=== PATIENT | male | born 1950 | race Caucasian/White ===

== ENCOUNTER 2017-10-14 08:44 | Day surgery (SDC) | payer MEDICARE, OTHER ==
[~2017-10-14 08:44] MED LIST: Acetaminophen TAB* 325 MG PO PRN; Buffered Lidocaine 0.9% SYRIN* 5 ML/SYR SYRINGE INTRADERM ONE
[2017-10-14] MEDS ORDERED: fentaNYL* 50 MCG/ML 2 ML VIAL (100 MCG VIAL) ONE (09:19)
[2017-10-14] MEDS ORDERED: Midazolam* 1 MG/ML 2 ML VIAL (2 MG) ONE (09:19)
[2017-10-14 10:40] VITALS: BP 99/67
[2017-10-14] MEDS ORDERED: Ketorolac 0.5% OPHTH (NF) 0.5 % 5 ML BTL ONE (10:56)
[2017-10-14] MEDS ORDERED: Phenylephrine 2.5% OPTH.SOL* 2 ML BTL ONE (10:56)
[2017-10-14] MEDS ORDERED: Tetracaine 0.5% OPTH.SOL 4 ML* 1 DROP BTL ONE (10:56)
[2017-10-14] MEDS ORDERED: Cyclopentolate 1% OPTH.SOL* 2 ML BTL ONE (10:56)
[2017-10-14] MEDS ORDERED: Lidocaine 1% MPF* 2 ML VIAL ONE (10:56)
[2017-10-14] MEDS ORDERED: Tropicamide 1% OPTH.SOL* BTL ONE (10:56)
[2017-10-14] MEDS ORDERED: Neomycin/Polymy/Dex OPHTH.OIN* 3.5 GM ONE (10:56)
--- NOTE | 2017-10-14 15:35 | OP ---
DATE OF OPERATION: 10/14/17 [facility] DATE OF : 48 SURGEON: Dr. Nilesh Lozano. LEAD WEB APPLICATION DEVELOPER: None. ANESTHESIOLOGIST: Simran Braun MD ANESTHESIA: Topical with intravenous sedation. PRE-OP DIAGNOSIS: Cataract, right eye. POST-OP DIAGNOSIS: Cataract, right eye. OPERATIVE PROCEDURE: Phacoemulsification and cataract extraction with posterior chamber intraocular lens implant, right eye. COMPLICATIONS: None. BLOOD LOSS: None. DESCRIPTION OF PROCEDURE: The patient was brought to the operating room and received a small amount of intravenous sedation. A drop of Tetracaine was placed in his right eye. He was prepped and draped in the usual sterile fashion for ophthalmic surgery and attention was directed to the right eye where a speculum was placed. A paracentesis was created at the 11 o'clock position and 0.1 cc of 1 percent preservative-free Lidocaine was injected into the anterior chamber followed by DisCoVisc. The eye was digitally stabilized while a 2.75 mm keratome was used to create a triplanar clear corneal incision at the 9 o'clock position. A continuous curvilinear capsulorrhexis was created with a cystotome and Utrata forceps. BSS on a cannula was used to hydrodissect the lens from the capsule. Phacoemulsification was performed in a divide-and- conquer technique to create four fragments which were removed. Residual cortical material was removed with irrigation and aspiration. DisCoVisc was used to inflate the capsular bag and an AU00T0 22.0 diopter lens was folded and inserted into the capsular bag. DisCoVisc was removed using irrigation and aspiration. BSS on a cannula was used to hydrate the corneal stroma and seal the wound. At the end of the case the pupil was round and the lens was centered. The eye was of normal pressure and the wound was water tight. The speculum was removed and topical Maxitrol ointment was placed on the surface of the eye. The eye was closed, patched and shielded and the patient was sent to the recovery room in stable condition with post operative instructions and follow-up appointment given. [id number] #: [id number] MTDD
== END 2017-10-14 10:40 | disposition home or self-care (01) ==
LOC: OREAST 08:44
PROVIDERS: ATTEND Ophthalmology
DX: H25.11 Age-related nuclear cataract, right eye (principal); M06.9 Rheumatoid arthritis, unspecified; Z86.73 Personal history of transient ischemic attack (TIA), and cerebral infarction without residual deficits; Z79.01 Long term (current) use of anticoagulants; E78.00 Pure hypercholesterolemia, unspecified; I10 Essential (primary) hypertension; Z72.0 Tobacco use
CPT/HCPCS: A9270-GY; J2250; J3010; V2632

== ENCOUNTER 2017-10-21 09:00 | Day surgery (SDC) | payer MEDICARE, OTHER ==
[2017-10-21] MEDS ORDERED: Tetracaine 0.5% OPTH.SOL 4 ML* 1 DROP BTL ONE (09:10)
[2017-10-21] MEDS ORDERED: Neomycin/Polymy/Dex OPHTH.OIN* 3.5 GM ONE (09:10)
[2017-10-21] MEDS ORDERED: Cyclopentolate 1% OPTH.SOL* 2 ML BTL ONE (09:10)
[2017-10-21] MEDS ORDERED: Ketorolac 0.5% OPHTH (NF) 0.5 % 5 ML BTL ONE (09:10)
[2017-10-21] MEDS ORDERED: Phenylephrine 2.5% OPTH.SOL* 2 ML BTL ONE (09:10)
[2017-10-21] MEDS ORDERED: Lidocaine 1% MPF* 2 ML VIAL ONE (09:10)
[2017-10-21] MEDS ORDERED: Tropicamide 1% OPTH.SOL* BTL ONE (09:10)
[2017-10-21] MEDS ORDERED: fentaNYL* 50 MCG/ML 2 ML VIAL (100 MCG VIAL) ONE (09:41)
[2017-10-21] MEDS ORDERED: Midazolam* 1 MG/ML 2 ML VIAL (2 MG) ONE ×2 (09:41→10:09)
[2017-10-21 10:34] VITALS: BP 99/63
--- NOTE | 2017-10-21 13:24 | OP ---
DATE OF OPERATION/DATE OF DICTATION: 10/21/2017 - [facility] DATE OF : 1950. SURGEON: Dr. Nilesh Lozano. SENIOR PROCUREMENT MANAGER: None. ANESTHESIOLOGIST: Stephen Loza MD ANESTHESIA: Topical with intravenous sedation. PRE-OP DIAGNOSIS: Cataract, left eye. POST-OP DIAGNOSIS: Cataract, left eye. OPERATIVE PROCEDURE: Phacoemulsification and cataract extraction with posterior chamber intraocular lens implant, left eye. COMPLICATIONS: None. BLOOD LOSS: None. DESCRIPTION OF PROCEDURE: The patient was brought to the operating room and received a small amount of intravenous sedation. A drop of Tetracaine was placed in his left eye. He was prepped and draped in the usual sterile fashion for ophthalmic surgery and attention was directed to the left eye where a speculum was placed. A paracentesis was created at the 5 o'clock position and 0.1 cc of 1 percent preservative-free Lidocaine was injected into the anterior chamber followed by DisCoVisc. The eye was digitally stabilized while a 2.75 mm keratome was used to create a triplanar clear corneal incision at the 3 o'clock position. A continuous curvilinear capsulorrhexis was created with a cystotome and Utrata forceps. BSS on a cannula was used to hydrodissect the lens from the capsule. Phacoemulsification was performed in a [id number]-[id number] technique to create four fragments which were removed. Residual cortical material was removed with irrigation and aspiration. DisCoVisc was used to inflate the capsular bag and an AUOOTO 20.0 diopter lens was folded and inserted into the capsular bag. DisCoVisc was removed using irrigation and aspiration. BSS on a cannula was used to hydrate the corneal stroma and seal the wound. At the end of the case the pupil was round and the lens was centered. The eye was of normal pressure and the wound was water tight. The speculum was removed and topical Maxitrol ointment was placed on the surface of the eye. The eye was closed, patched and shielded and the patient was sent to the recovery room in stable condition with post operative instructions and follow-up appointment given. [id number] #: [id number] MTDD
== END 2017-10-21 10:47 | disposition home or self-care (01) ==
LOC: OREAST 09:00
PROVIDERS: ATTEND Ophthalmology
DX: H25.12 Age-related nuclear cataract, left eye (principal); M06.9 Rheumatoid arthritis, unspecified; Z79.01 Long term (current) use of anticoagulants; Z86.73 Personal history of transient ischemic attack (TIA), and cerebral infarction without residual deficits; I10 Essential (primary) hypertension; E78.00 Pure hypercholesterolemia, unspecified; E78.5 Hyperlipidemia, unspecified; I48.91 Unspecified atrial fibrillation; E11.51 Type 2 diabetes mellitus with diabetic peripheral angiopathy without gangrene; F17.290 Nicotine dependence, other tobacco product, uncomplicated
CPT/HCPCS: A9270-GY; J2250; J3010; V2632

== ENCOUNTER 2019-08-04 20:04 | Emergency (ER) | payer MEDICARE, OTHER ==
--- OUTSIDE RECORDS SUMMARY | 2019-08-04 20:26 | XMS REPORT | Continuity of Care Document ---
:1950 External Reference #:[id number] Author Name Nelida Forman Care Team Providers Name Role Phone Boby Paiz MD - Surgery Care Team Information Agricultural Education Instructor [phone] Anabell Serna MD - Family Care Team Information Agricultural Education Instructor [phone] Medicine Problems Active Problems Provider Date Rheumatoid arthritis Thanh Steen M.D. Onset: 08/31/2012 Medications Manager Marketing Sales (Current) Use Encounter Thanh Steen M.D. Onset: Gastroesophageal reflux disease Gertrudis Milton NP Onset: 11/27/2018 History of polyp of colon Gertrudis Milton NP Onset: 11/27/2018 Note: had resection in 2007, Dr. Paiz Renal mass Gertrudis Milton NP Onset: 11/27/2018 Note: watched closely by Social History Type Date Description Comments Sex Unknown ETOH Use Occasionally consumes alcohol ETOH Use consumes 1-2 glasses of wine per week Tobacco Use Start: Unknown Patient is a current smoker, smokes some days Tobacco Use Start: Unknown He smokes only 3 cigars per week and has only 1 glass of wine daily Smoking Status Reviewed: 05/20/19 He smokes only 3 cigars per week and has only 1 glass of wine daily Exercise Type/Frequency Exercises regularly Allergies, Adverse Reactions, Alerts Active Allergies Reaction Severity Comments Date Remicade respiratory reaction 03/19/2017 Inactive Allergies NKDA 04/23/2011 Medications Active Medications SIG Qnty Indications Ordering Date Provider Potassium Chloride Take One Tablet By 30tabs Skyler Barahona, 06/12/2019 ER Mouth Every Day M.D. 8Meq Tablets ER Actemra inject 162 mg 1.8ml M05.79 Skyler Barahona, 06/03/2019 162mg/0.9ML subcutaneously every M.D. Soln Prefill other week Syringe Probenecid take 1 tablet by 30tabs Skyler Barahona, 05/02/2019 500mg mouth every day M.D. Tablets Allopurinol take by mouth every 120tabs Skyler Barahona, 02/15/2019 100mg day, in addition to M.D. Tablets 300mg allopurinol (total of 400mg of allopurinol daily) Suprep Bowel Prep Take according to 354unelizabeth Stephen 12/02/2018 Kit your physician's MD Nilson instructions the day 17.5-3.13-1.6GM/177 before your ML Solution procedure. Split the dose as directed. Allopurinol take one tablet by 60tabs M05.79 Skyler Barahona, 05/30/2018 300mg mouth every day M.D. Tablets (along with 100 mg tab) tdd 400 mg Methotrexate take 7 tablets once 28tabs Skyler Barahona, 08/22/2017 2.5mg weekly on saturdays. M.D. Tablets Folic Acid Take One Tablet 90tabs Skyler Barahona, 08/22/2017 1mg Daily. M.D. Tablets Hydrocodone-Acetami take one tab by mouth 90tabs M05.79 Skyler Barahona, 01/2017 nophen every 8 hours as M.D. 7.5-325mg needed, chronic pain Tablets Simvastatin 1 every day 30tabs Thanh Steen, 02/12/2011 20mg M.D. Tablets Coumadin Currently on 6mg 6 90tabs Unknown 4mg days a week and 7.5mg Tablets once a week Amlodipine Besylate 1 by mouth once a day Unknown 10mg Tablets Atenolol-Chlorthali 1 by mouth every day Unknown done 50-25mg Tablets Enalapril Maleate once daily Unknown 10mg Tablets Metformin HCL Unknown 500mg Tablets Potassium Chloride take one capsule/tab 30tabs Skyler Barahona, 05/29/2019 ER every day M.D. - 10Meq Tablets ER 06/12/2019 History Medications Medications Administered in Office Medication SIG Qnty Indications Ordering Provider Date Depomedrol 40MG Laura Gregg M.D. 07/31/2017 Injection Triamcinolone (Kenalog) Skyler Barahona M.D. 07/03/2017 Injection PPD Nurse Visit 09/23/2011 Injection Immunizations CPT Code Status Date Vaccine Lot # [id number] Given 08/08/2017 Influenza Virus Vaccine, Quadrivalent, Split, [id number] Preservative Free [id number] Given 01/09/2012 Tdap - Tetanus/Diptheria/Acellular Pertussis Vital Signs Date Vital Result Comment 05/20/2019 12:56pm Height 71 inches 5'11" Weight 195.25 lb BP Systolic 116 mmHg BP Diastolic 68 mmHg Pain Level 3 O2 % BldC Oximetry 96 % BMI (Body Mass Index) 27.2 kg/m2 02/15/2019 9:35am Height 71 inches 5'11" Weight 204.00 lb Heart Rate 65 /min BP Systolic Sitting 114 mmHg BP Diastolic Sitting 62 mmHg Pain Level 3 O2 % BldC Oximetry 94 % BMI (Body Mass Index) 28.4 kg/m2 Results Test Date Facility Test Result H/L Range Note Laboratory test 05/25/2019 [facility] Erythrocyte Sed 1 mm/Hr Normal 0-[address] Rate [place], [place] [id number] [phone] C Reactive Protein 1.46 mg/L Normal <8.01 CBC Auto 05/25/2019 [facility] White Blood 3.7 10^3/uL Normal 3.5-10.[address] [place] [address] [phone] Red Blood Count 4.57 10^6/uL Normal 4.18-5.48 Hemoglobin 15.0 g/dL Normal 14.0-18.0 Hematocrit 44 % Normal 42-52 Mean Corpuscular Volume 97 fL High 80-94 Mean Corpuscular Hemoglobin 33 pg High 27-31 Mean Corpuscular HGB Conc 34 g/dL Normal 31-36 Red Cell Distribution Width 15 % Normal 10-15 Platelet Count 114 10^3/uL Low 150-450 Mean Platelet Volume 8.8 fL Normal 7.4-10.4 Abs Neutrophils 3.0 10^3/uL Normal 1.5-7.7 Abs Lymphocytes 0.5 10^3/uL Low 1.0-4.8 Abs Monocytes 0.1 10^3/uL Normal 0-0.8 Abs Eosinophils 0.0 10^3/uL Normal 0-0.6 Abs Basophils 0.0 10^3/uL Normal 0-0.2 Abs Nucleated RBC 0.0 10^3/uL Granulocyte % 81.4 % Lymphocyte % 13.6 % Monocyte % 3.6 % Eosinophil % 0.5 % Basophil % 0.9 % Nucleated Red Blood Cells % 0.1 Comp Metabolic 05/25/2019 [facility] Sodium 137 mmol/L Normal 135-145 Panel [address] [place] [address] [phone] Potassium 3.1 mmol/L Low 3.5-5.0 Chloride 102 mmol/L Normal 101-111 Co2 Carbon Dioxide 26 mmol/L Normal 22-32 Anion Gap 9 mmol/L Normal 2-11 Glucose 124 mg/dL High 70-100 Blood Urea Nitrogen 18 mg/dL Normal 6-24 Creatinine 0.93 mg/dL Normal 0.67-1.17 BUN/Creatinine Ratio 19.4 Normal 8-20 Calcium 9.2 mg/dL Normal 8.6-10.3 Total Protein 6.2 g/dL Low 6.4-8.9 Albumin 4.0 g/dL Normal 3.2-5.2 Globulin 2.2 g/dL Normal 2-4 Albumin/Globulin Ratio 1.8 Normal 1-3 Total Bilirubin 1.40 mg/dL High 0.2-1.0 Alkaline Phosphatase 65 U/L Normal 34-104 Alt 26 U/L Normal 7-52 Ast 26 U/L Normal 13-39 Egfr Non- 80.6 >60 Egfr 97.5 >60 1 Drug Abuse 20 05/25/2019 [facility] Urine Amphetamine Negative ng/mL 2 Urine [address] [place] [address] [phone] Urine Barbiturates Negative ng/mL 3 Urine Benzodiazepines Negative ng/mL 4 Urine Cocaine Negative ng/mL 5 Urine Phencyclidine Negative ng/mL Cutoff: 25 Urine Tetrahydrocannabinol Negative ng/mL Cutoff: 50 6 Creatinine, Urine 72.7 mg/dL Specific Barry 1.013 pH 5.6 Oxidants Negative 7 Adulterants Comment Normal Codeine, Ur Not Detected ng/mL Cutoff: 25 8 Gktgwzl-4-osae-glucuronide, Ur Present ng/mL Abnormal 9 Morphine, Ur Not Detected ng/mL Cutoff: 25 10 Echcuoaf-9-mxdu-glucuronide, U Not Detected ng/mL 11 6-monoacetylmorphine, Ur Not Detected ng/mL Cutoff: 25 12 Hydrocodone, Ur Present ng/mL Abnormal Cutoff: 25 13 Norhydrocodone, Ur Present ng/mL Abnormal Cutoff: 25 14 Dihydrocodeine, Ur Present ng/mL Abnormal Cutoff: 25 15 Hydromorphone, Ur Present ng/mL Abnormal Cutoff: 25 16 Lxcuuanxqbxpy0norluminphtpser Present ng/mL Abnormal 17 Oxycodone, Ur Not Detected ng/mL Cutoff: 25 18 Noroxycodone, Ur Not Detected ng/mL Cutoff: 25 19 Oxymorphone, Ur Not Detected ng/mL Cutoff: 25 20 Zadvkmmkqys-4-vajv-glucuronide Not Detected ng/mL 21 Noroxymorphone, Ur Not Detected ng/mL Cutoff: 25 22 Fentanyl, Ur Not Detected ng/mL Cutoff: 2 23 Norfentanyl, Ur Not Detected ng/mL Cutoff: 2 24 Meperidine, Ur Not Detected ng/mL Cutoff: 25 25 Normeperidine, Ur Not Detected ng/mL Cutoff: 25 26 Naloxone, Ur Not Detected ng/mL Cutoff: 25 27 Pamjsbqz-0-jssw-glucuronide, U Not Detected ng/mL 28 Methadone, Ur Not Detected ng/mL Cutoff: 25 29 Eddp, Ur Not Detected ng/mL Cutoff: 25 30 Propoxyphene, Ur Not Detected ng/mL Cutoff: 25 31 Norpropoxyphene, Ur Not Detected ng/mL Cutoff: 25 32 Tramadol, Ur Not Detected ng/mL Cutoff: 25 33 O-desmethyltramadol, Ur Not Detected ng/mL Cutoff: 25 34 Tapentadol, Ur Not Detected ng/mL Cutoff: 25 35 N-desmethyltapentadol, Ur Not Detected ng/mL Cutoff: 50 36 Bgjzoyroej-zxfj-dqxaijhuojv, U Not Detected ng/mL 37 Buprenorphine, Ur Not Detected ng/mL Cutoff: 5 38 Norbuprenorphine, Ur Not Detected ng/mL Cutoff: 5 39 Norbuprenorphine glucuronide Not Detected ng/mL Cutoff: 20 40 Opioid Interpretation See Comment 41 Laboratory test 05/25/2019 [facility] Uric Acid 5.9 mg/dL Normal 4.4-7.[address] [place] [address] [phone] Laboratory test 04/27/2019 [facility] Uric Acid 8.9 mg/dL High 4.4-7.[address] [place] [address] [phone] CMP Panel 04/27/2019 [facility] Sodium 137 mmol/L Normal 135- [address] [place] [address] [phone] Potassium 3.7 mmol/L Normal 3.5-5.0 Chloride 103 mmol/L Normal 101-111 Co2 Carbon Dioxide 29 mmol/L Normal 22-32 Anion Gap 5 mmol/L Normal 2-11 Glucose 140 mg/dL High 70-100 Blood Urea Nitrogen 22 mg/dL Normal 6-24 Creatinine 1.08 mg/dL Normal 0.67-1.17 BUN/Creatinine Ratio 20.4 High 8-20 Calcium 9.7 mg/dL Normal 8.6-10.3 Total Protein 6.5 g/dL Normal 6.4-8.9 Albumin 4.3 g/dL Normal 3.2-5.2 Globulin 2.2 g/dL Normal 2-4 Albumin/Globulin Ratio 2.0 Normal 1-3 Total Bilirubin 1.90 mg/dL High 0.2-1.0 Alkaline Phosphatase 40 U/L Normal 34-104 Alt 24 U/L Normal 7-52 Ast 25 U/L Normal 13-39 Egfr Non- 67.8 >60 Egfr 82.0 >60 42 CBC W/Auto 04/27/2019 [facility] White Blood 5.2 10^3/uL Normal 3.5-10.[address] [place] [address] [phone] Red Blood Count 4.80 10^6/uL Normal 4.18-5.48 Hemoglobin 15.6 g/dL Normal 14.0-18.0 Hematocrit 47 % Normal 42-52 Mean Corpuscular Volume 98 fL High 80-94 Mean Corpuscular Hemoglobin 33 pg High 27-31 Mean Corpuscular HGB Conc 33 g/dL Normal 31-36 Red Cell Distribution Width 15 % Normal 10-15 Platelet Count 103 10^3/uL Low 150-450 Mean Platelet Volume 9.0 fL Normal 7.4-10.4 Abs Neutrophils 4.0 10^3/uL Normal 1.5-7.7 Abs Lymphocytes 0.6 10^3/uL Low 1.0-4.8 Abs Monocytes 0.5 10^3/uL Normal 0-0.8 Abs Eosinophils 0.0 10^3/uL Normal 0-0.6 Abs Basophils 0.1 10^3/uL Normal 0-0.2 Abs Nucleated RBC 0.0 10^3/uL Granulocyte % 77.2 % Lymphocyte % 11.8 % Monocyte % 9.0 % Eosinophil % 0.5 % Basophil % 1.5 % Nucleated Red Blood Cells % 0.0 Laboratory test 04/27/2019 [facility] Erythrocyte Sed 1 mm/Hr Normal 0-[address] [place] [address] [phone] C Reactive Protein < 1.00 mg/L Normal <8.01 Laboratory test 03/01/2019 [facility] Erythrocyte Sed 2 mm/Hr Normal 0-[address] [place] [address] [phone] C Reactive Protein < 1.00 mg/L Normal <8.01 CBC W/Auto 03/01/2019 [facility] White Blood 3.4 10^3/uL Low 3.5-10.[address] [place] [address] [phone] Red Blood Count 4.71 10^6/uL Normal 4.18-5.48 Hemoglobin 15.7 g/dL Normal 14.0-18.0 Hematocrit 47 % High 36-46 Mean Corpuscular Volume 99 fL High 80-94 Mean Corpuscular Hemoglobin 33 pg High 27-31 Mean Corpuscular HGB Conc 34 g/dL Normal 31-36 Red Cell Distribution Width 15 % Normal 10.5-15 Platelet Count 111 10^3/uL Low 150-450 Mean Platelet Volume 9.0 fL Normal 7.4-10.4 Abs Neutrophils 2.0 10^3/uL Normal 1.5-7.7 Abs Lymphocytes 0.9 10^3/uL Low 1.0-4.8 Abs Monocytes 0.4 10^3/uL Normal 0-0.8 Abs Eosinophils 0.1 10^3/uL Normal 0-0.6 Abs Basophils 0.1 10^3/uL Normal 0-0.2 Abs Nucleated RBC 0 10^3/uL Granulocyte % 59.0 % Lymphocyte % 27.2 % Monocyte % 10.4 % Eosinophil % 1.5 % Basophil % 1.9 % Nucleated Red Blood Cells % 0.1 CMP Panel 03/01/2019 [facility] Sodium 138 mmol/L Normal 135- 145 [address] [place] [address] [phone] Potassium 3.4 mmol/L Low 3.5-5.0 Chloride 104 mmol/L Normal 101-111 Co2 Carbon Dioxide 28 mmol/L Normal 22-32 Anion Gap 6 mmol/L Normal 2-11 Glucose 120 mg/dL High 70-100 Blood Urea Nitrogen 20 mg/dL Normal 6-24 Creatinine 0.92 mg/dL Normal 0.67-1.17 BUN/Creatinine Ratio 21.7 High 8-20 Calcium 9.8 mg/dL Normal 8.6-10.3 Total Protein 6.7 g/dL Normal 6.4-8.9 Albumin 4.7 g/dL Normal 3.2-5.2 Globulin 2.0 g/dL Normal 2-4 Albumin/Globulin Ratio 2.4 Normal 1-3 Total Bilirubin 2.70 mg/dL High 0.2-1.0 Alkaline Phosphatase 43 U/L Normal 34-104 Alt 32 U/L Normal 7-52 Ast 30 U/L Normal 13-39 Egfr Non- 81.6 >60 Egfr 98.7 >60 43 Laboratory test 03/01/2019 [facility] Uric Acid 7.4 mg/dL Normal 4.4-7.6 finding [address] [place] [address] [phone] Comp Metabolic 01/04/2019 [facility] Sodium 137 mmol/L Normal 135-[address] [place] [address] [phone] Potassium 3.6 mmol/L Normal 3.5-5.0 Chloride 105 mmol/L Normal 101-111 Co2 Carbon Dioxide 27 mmol/L Normal 22-32 Anion Gap 5 mmol/L Normal 2-11 Glucose 109 mg/dL High 70-100 Blood Urea Nitrogen 23 mg/dL Normal 6-24 Creatinine 1.07 mg/dL Normal 0.67-1.17 BUN/Creatinine Ratio 21.5 High 8-20 Calcium 9.4 mg/dL Normal 8.6-10.3 Total Protein 6.5 g/dL Normal 6.4-8.9 Albumin 4.5 g/dL Normal 3.2-5.2 Globulin 2.0 g/dL Normal 2-4 Albumin/Globulin Ratio 2.3 Normal 1-3 Total Bilirubin 1.70 mg/dL High 0.2-1.0 Alkaline Phosphatase 40 U/L Normal 34-104 Alt 25 U/L Normal 7-52 Ast 22 U/L Normal 13-39 Egfr Non- 68.5 >60 Egfr 82.9 >60 44 Laboratory test 01/04/2019 [facility] Uric Acid 7.5 mg/dL Normal 4.4-7.[address] [place] [address] [phone] C Reactive Protein < 1.00 mg/L Normal <8.01 CBC Auto 01/04/2019 [facility] White Blood 3.9 10^3/uL Normal 3.5-10.[address] [place] [address] [phone] Red Blood Count 4.36 10^6/uL Normal 4.00-5.40 Hemoglobin 14.4 g/dL Normal 14.0-18.0 Hematocrit 43 % Normal 42-52 Mean Corpuscular Volume 99 fL High 80-94 Mean Corpuscular Hemoglobin 33 pg High 27-31 Mean Corpuscular HGB Conc 34 g/dL Normal 31-36 Red Cell Distribution Width 15 % Normal 10.5-15 Platelet Count 131 10^3/uL Low 150-450 Mean Platelet Volume 9.2 fL Normal 7.4-10.4 Abs Neutrophils 2.2 10^3/uL Normal 1.5-7.7 Abs Lymphocytes 1.2 10^3/uL Normal 1.0-4.8 Abs Monocytes 0.4 10^3/uL Normal 0-0.8 Abs Eosinophils 0.1 10^3/uL Normal 0-0.6 Abs Basophils 0.1 10^3/uL Normal 0-0.2 Abs Nucleated RBC 0 10^3/uL Granulocyte % 56.8 % Lymphocyte % 31.2 % Monocyte % 9.2 % Eosinophil % 1.3 % Basophil % 1.5 % Nucleated Red Blood Cells % 0.1 Laboratory test 01/04/2019 [facility] Erythrocyte Sed 12 mm/Hr Normal 0-20 [address] [place] [address] [phone] 1 Because ethnic data is not always readily available, this report includes an eGFR for both -Americans and non- Americans. The National Kidney Disease Education Program (NKDEP) does not endorse the use of the MDRD equation for patients that are not between the ages of 18 and 70, are , have extremes of body size, muscle mass, or nutritional status, or are non- or non-. According to the National Kidney Foundation, irrespective of diagnosis, the stage of the disease is based on the level of kidney function: Stage Description GFR(mL/min/1.73 m(2)) 1 Kidney damage with normal or decreased GFR 90 2 Kidney damage with mild decrease in GFR 60-89 3 Moderate decrease in GFR 30-59 4 Severe decrease in GFR 15-29 5 Kidney failure <15 (or dialysis) 2 REFERENCE VALUE Cutoff: 500 3 REFERENCE VALUE Cutoff: 200 4 REFERENCE VALUE Cutoff: 100 5 REFERENCE VALUE Cutoff: 150 6 ADDITIONAL INFORMATION This report is intended for use in clinical monitoring or management of patients. It is not intended for use in employment-related testing. Test Performed by: [facility] [address], [place] [address] 7 REFERENCE VALUE Cutoff: 200 mg/L 8 Tylenol 3 9 Metabolite of codeine REFERENCE VALUE Cutoff: 100 10 Yolis Salazar, MS Contin; Also a minor metabolite (10%) of codeine and can be seen in low concentrations (<2,000 ng/mL) with poppy seed ingestion. 11 Metabolite of morphine REFERENCE VALUE Cutoff: 100 12 Metabolite of heroin 13 Lortab, [place], Vicodin; Also a very minor metabolite of codeine and impurity (<1%) of oxycodone. 14 Metabolite of hydrocodone 15 Metabolite of hydrocodone 16 Dilaudid, Exalgo; Also a metabolite of hydrocodone and a minor (<5%) metabolite of morphine. 17 Metabolite of hydromorphone REFERENCE VALUE Cutoff: 100 18 Endocet, Percocet, Oxycontin 19 Metabolite of oxycodone 20 Numorphan, Opana; Also a metabolite of oxycodone. 21 Metabolite of oxymorphone REFERENCE VALUE Cutoff: 100 22 Metabolite of oxymorphone 23 Actiq, Duragesic, [place] 24 Metabolite of fentanyl 25 Demerol 26 Metabolite of meperidine 27 Narcan 28 Metabolite of naloxone REFERENCE VALUE Cutoff: 100 29 Dolophine 30 Metabolite of methadone 31 DarJose Alfredo bravovocet 32 Metabolite of propoxyphene 33 Tradol, Ultram, Ultracet 34 Metabolite of tramadol 35 Nucynta 36 Metabolite of tapentadol 37 Metabolite of tapentadol REFERENCE VALUE Cutoff: 100 38 Buprenex, Suboxone 39 Metabolite of buprenorphine 40 Metabolite of buprenorphine 41 Test detected the presence of jgnnbcw-3-beun-glucuronide (metabolite of codeine) only. Suspect use of codeine within the past three days. Test detected the presence of hydrocodone and several of its metabolites. Suspect use of hydrocodone or possibly hydrocodone and hydromorphone within the past three days. ADDITIONAL INFORMATION This test was developed and its performance characteristics determined by [facility] in a manner consistent with CLIA requirements. This test has not been cleared or approved by the U.S. Food and Drug Administration. 42 Because ethnic data is not always readily available, this report includes an eGFR for both -Americans and non- Americans. The National Kidney Disease Education Program (NKDEP) does not endorse the use of the MDRD equation for patients that are not between the ages of 18 and 70, are , have extremes of body size, muscle mass, or nutritional status, or are non- or non-. According to the National Kidney Foundation, irrespective of diagnosis, the stage of the disease is based on the level of kidney function: Stage Description GFR(mL/min/1.73 m(2)) 1 Kidney damage with normal or decreased GFR 90 2 Kidney damage with mild decrease in GFR 60-89 3 Moderate decrease in GFR 30-59 4 Severe decrease in GFR 15-29 5 Kidney failure <15 (or dialysis) 43 Because ethnic data is not always readily available, this report includes an eGFR for both -Americans and non- Americans. The National Kidney Disease Education Program (NKDEP) does not endorse the use of the MDRD equation for patients that are not between the ages of 18 and 70, are , have extremes of body size, muscle mass, or nutritional status, or are non- or non-. According to the National Kidney Foundation, irrespective of diagnosis, the stage of the disease is based on the level of kidney function: Stage Description GFR(mL/min/1.73 m(2)) 1 Kidney damage with normal or decreased GFR 90 2 Kidney damage with mild decrease in GFR 60-89 3 Moderate decrease in GFR 30-59 4 Severe decrease in GFR 15-29 5 Kidney failure <15 (or dialysis) 44 Because ethnic data is not always readily available, this report includes an eGFR for both -Americans and non- Americans. The National Kidney Disease Education Program (NKDEP) does not endorse the use of the MDRD equation for patients that are not between the ages of 18 and 70, are , have extremes of body size, muscle mass, or nutritional status, or are non- or non-. According to the National Kidney Foundation, irrespective of diagnosis, the stage of the disease is based on the level of kidney function: Stage Description GFR(mL/min/1.73 m(2)) 1 Kidney damage with normal or decreased GFR 90 2 Kidney damage with mild decrease in GFR 60-89 3 Moderate decrease in GFR 30-59 4 Severe decrease in GFR 15-29 5 Kidney failure <15 (or dialysis) 45 Test Performed by: [facility] [address] [place] [id number] Rayshawn Sanford M.D. Director of Laboratory Procedures Date Code Description Status 12/22/2018 [id number] Colonoscopy Completed 02/12/2008 [id number] Colonoscopy Completed 08/25/2006 [id number] Colonoscopy Completed Medical Devices Description No Information Available Encounters Type Date Location Provider Dx Diagnosis Office Visit 05/20/2019 Rheumatology Skyler Barahona M05.79 [facility] arthritis w 1:[facility]p [facility] factor mult site w/o org/sys involv Z79.899 Other buttermaker (current) drug therapy M10.9 Gout, unspecified M19.049 Primary osteoarthritis, unspecified hand Office Visit 02/15/2019 9:40a Rheumatology Marlene Valadez5.79 Rheu [facility]. w rheu factor mult site w/o org/sys involv Z79.899 Other buttermaker (current) drug therapy M10.9 Gout, unspecified M19.049 Primary osteoarthritis, unspecified hand R60.0 Localized edema Assessments Date Code Description Provider 05/20/2019 M05.79 Rheumatoid arthritis with rheumatoid factor of Skyler Barahona M.D. multiple site 05/20/2019 Z79.899 Other buttermaker (current) drug therapy Skyler Barahona M.D. 05/20/2019 M10.9 Gout, unspecified Skyler Barahona M.D. 05/20/2019 M19.049 Primary osteoarthritis, unspecified hand Skyler Barahona M.D. 02/15/2019 M05.79 Rheumatoid arthritis with rheumatoid factor of Skyler Barahona M.D. multiple site 02/15/2019 Z79.899 Other fpc (current) drug therapy Skyler Barahona M.D. 02/15/2019 M10.9 Gout, unspecified Skyler Barahona M.D. 02/15/2019 M19.049 Primary osteoarthritis, unspecified hand Skyler Barahona M.D. 02/15/2019 R60.0 Localized edema Skyler Barahona M.D. Plan of Treatment Future Appointment(s):08/18/2019 9:00 am - Skyler Barahona M.D. at [facility]05/20/2019 - Skyler Barahona M.D.M05.79 Rheumatoid arthritis with rheumatoid factor of multiple siteZ79.899 Other fpc (current) drug zesntrnH63.9 Gout, btpxoszltogK29.049 Primary osteoarthritis, unspecified handFollow up:Follow up in 3 months or sooner if needed Functional Status Description No Information Available Mental Status Description No Information Available Referrals Description No Information Available
--- NOTE | 2019-08-04 23:58 | ED ---
Lower Extremity - HPI Summary HPI Summary: Patient complains of increase in chronic bilateral lower extremity edema with new onset weeping of fluid. Denies pain, trauma, fever, cough, sore throat, CP , SOB, N/V/V abdominal pain, change in urine, change in BM. Medical history is paroxysmal A. fib, DM, gallop, or edema. Patient on warfarin. On chlorthalidone. - History of Current Complaint Chief Complaint: EDExtremityLower Stated Complaint: SWELLING OF LEGS Time Seen by Provider: 08/04/19 23:53 Hx Obtained From: Patient Mechanism Of Injury: Unknown - [facility] IC are not denies leg patient just distal and follow-up E on vaccinations all I know that A yet so medially or [place] trying to run away from the report is was a slight no relief Onset of Pain: Hours Onset/Duration: Hours - Friday the Severity Currently: None - A few minutes regularly whenever you that your source patient to be released also Pain Intensity: 0 Pain Scale Used: 0-10 Numeric - out Timing: Constant Associated Signs And Symptoms: Positive: Swelling - The back is admitted in [place] with 1 Aggravating Factor(s): Ambulation, Weight Bearing Alleviating Factor(s): Rest, Elevation - Abdominal Able to Bear Weight: Yes - Allergies/Home Medications Allergies/Adverse Reactions: Allergies Allergy/AdvReac Type Severity Reaction Status Date / Time infliximab [From Remicade] Allergy Severe Difficulty Verified 08/04/19 20:15 Breathing PMH/Surg Hx/FS Hx/Imm Hx Previously Healthy: - the Endocrine/Hematology History: Denies: Hx Diabetes Cardiovascular History: Reports: Hx Hypertension, Other Cardiovascular Problems/ Disorders - PATIENT STATED HAS "THICK AND STICKY" BLOOD, ON WARFARIN Denies: Hx Congestive Heart Failure, Hx Pacemaker/ICD Respiratory History: Denies: Other Respiratory Problems/Disorders History: Reports: Other Problems/Disorders - right kidney 3 very small cyst benign Denies: Hx Renal Disease Musculoskeletal History: Reports: Hx Arthritis - rheumatoid joints, gouty arthritis, Hx Rheumatoid Arthritis Sensory History: Reports: Hx Cataracts - both eyes, Hx Contacts or Glasses - glasses Denies: Hx Hearing Aid Opthamlomology History: Reports: Hx Cataracts - both eyes, Hx Contacts or Glasses - glasses EENT History: Denies: Hx Deafness - for about 16 seconds Psychiatric History: Denies: Hx Panic Disorder - Cancer History Hx Chemotherapy: No - Surgical History Surgery Procedure, Year, and Place: LAP CHOLECTOMY AND APPI. VENTRAL HERNIA REPAIR. DOUBLE HERNIA AGE 8 Hx Anesthesia Reactions: No Infectious Disease History: No Infectious Disease History: Denies: Traveled Outside the [place] in Last 30 Days - Family History Known Family History: Positive: Non-Contributory - Social History Alcohol Use: Daily Alcohol Amount: wine with dinner Substance Use Type: Reports: None Smoking Status (MU): Current Some Day Smoker Type: Cigars Amount Used/How Often: WILL SMOKE AN OCCASSIONAL SMALL CIGAR Length of Time of Smoking/Using Tobacco: 25 years Have You Smoked in the Last Year: Yes Review of Systems Constitutional: Negative Eyes: Negative ENT: Negative Cardiovascular: Negative Respiratory: Negative - she has is advised me in Gastrointestinal: Negative Genitourinary: Negative Musculoskeletal: Negative Skin: Other - that the thing I'm famous for but it's probably the Neurological: Negative Psychological: Normal All Other Systems Reviewed And Are Negative: Yes Physical Exam - Summary Physical Exam Summary: 2+ Bilateral lower extremity edema. Weeping from right anterior cramer. Discoloration on bilateral lower extremity consistent with venous insufficiency. No extra warmth, deformity noted. Calves soft nontender. PMS intact distally bilaterally. No evidence of trauma. Triage Information Reviewed: Yes Vital Signs On Initial Exam: Initial Vitals Temp Pulse Resp BP Pulse Ox 99.2 F 79 16 107/70 95 08/04/19 20:08 08/04/19 20:08 08/04/19 20:08 08/04/19 20:08 08/04/19 20:08 Vital Signs Reviewed: Yes Appearance: Positive: Well-Appearing Skin: Positive: Warm Head/Face: Positive: Normal Head/Face Inspection Eyes: Positive: Normal Neck: Positive: Supple Respiratory/Lung Sounds: Positive: Clear to Auscultation Cardiovascular: Positive: Normal Abdomen Description: Positive: Nontender Musculoskeletal: Positive: Normal Neurological: Positive: Normal Psychiatric: Positive: Normal AVPU Assessment: Alert - [place] Coma Scale Best Eye Response: 4 - Spontaneous Best Motor Response: 6 - Obeys Commands Best Verbal Response: 5 - Oriented Coma Scale Total: 15 Procedures - Sedation Patient Received Moderate/Deep Sedation with Procedure: No Diagnostics - Vital Signs Vital Signs Temp Pulse Resp BP Pulse Ox 08/04/19 22:10 98.7 F 86 16 101/61 93 08/04/19 20:08 99.2 F 79 16 107/70 95 - Laboratory Result Diagrams: 08/05/19 00:18 08/05/19 00:16 Lab Statement: Any lab studies that have been ordered have been reviewed, and results considered in the medical decision making process. Lower Extremity Course/Dx - Course Course Of Treatment: Patient complains of increase in chronic bilateral lower extremity edema with new onset weeping of fluid. Denies pain, trauma, fever, cough, sore throat, CP, SOB, N/V/V abdominal pain, change in urine, change in BM. Medical history is paroxysmal A. fib, DM, gallop, or edema. Patient on warfarin. On chlorthalidone. Vital signs within normal limits. Potassium 3.1. Potassium 40 MEQ by mouth provided. Total bili 1.7, history of same. BNP 256. Chest x-ray negative for edema. Patient started on Lasix 10 mg by mouth here. Rx for same every other day. Follow-up with primary care. - Diagnoses Provider Diagnoses: Leg edema Discharge ED - Sign-Out/Discharge Documenting (check all that apply): Patient Departure - Discharge Plan Condition: Stable Disposition: HOME Prescriptions: Furosemide TAB* [Lasix TAB*] 10 mg PO DAILY 8 Days #2 tab Patient Education Materials: Leg Edema (ED) Referrals: Anabell Wheeler MD [Primary Care Provider] - Additional Instructions: Take Lasix 10 mg every other day. Follow-up with primary care for further evaluation. - Billing Disposition and Condition Condition: STABLE Disposition: Home - Attestation Statements Provider Attestation: I was available for consult. This patient was seen by the [facility]. The patient was not presented to, seen by, or examined by me. Chilo Nelson MD
[2019-08-05 00:33] LABS: ABS Lymphocytes 0.9 10^3/ul (1.0-4.8); ABS Monocytes 0.7 10^3/ul (0-0.8); Eosinophil % 0.3 %; Hematocrit 41 % (42-52); Hemoglobin 13.6 g/dL (14.0-18.0); Mean Corpuscular HGB Conc 33 g/dL (31-36); Mean Corpuscular Hemoglobin 34 pg (27-31); Mean Corpuscular Volume 101 fL (80-94); Mean Platelet Volume 8.6 fL (7.4-10.4); Nucleated Red Blood Cells % 0.2; Platelet Count 121 10^3/uL (150-450); Red Blood Count 4.05 10^6 /uL (4.18-5.48); Red Cell Distribution Width 16 % (10-15); White Blood Count 7.7 10^3/uL (3.5-10.8)
[2019-08-05 00:45] LABS: Albumin/Globulin Ratio 1.8 (1-3); BUN/Creatinine Ratio 12.4 (8-20); C Reactive Protein 22.89 mg/L (<8.01); EGFR African American 102.3 (>60); EGFR Non-African American 84.5 (>60); Globulin 2.2 g/dL (2-4); Potassium 3.1 mmol/L (3.5-5.0); Total Bilirubin 1.7 mg/dL (0.2-1.0); Total Protein 6.2 g/dL (6.4-8.9)
[2019-08-05] MEDS ORDERED: Potassium Chlor TAB* 20 MEQ TAB.ER PO ONE (01:13)
[2019-08-05] MEDS ORDERED: Furosemide TAB* 20 MG PO ONE (01:22)
[2019-08-05 01:56] VITALS: BP 102/67
== END 2019-08-05 01:35 | disposition home or self-care (01) ==
LOC: ED 20:04
DX: R60.9 Edema, unspecified (principal); I10 Essential (primary) hypertension; M06.9 Rheumatoid arthritis, unspecified; F17.290 Nicotine dependence, other tobacco product, uncomplicated; I48.91 Unspecified atrial fibrillation; E11.9 Type 2 diabetes mellitus without complications; Z79.01 Long term (current) use of anticoagulants; Z79.899 Other long term (current) drug therapy
CPT/HCPCS: 36415; 71045; 80053; 83880; 85025; 86140; 99282; A9270-GY

== ENCOUNTER 2020-05-17 08:36 | Inpatient (IN) ==
[2020-05-17] MEDS ORDERED: NS 0.9% 1000 ml BAG 1,000 ML IV SCH (08:45)
[2020-05-17 08:53] LABS: ABS Lymphocytes 1.2 10^3/ul (1.0-4.8); ABS Monocytes 0.9 10^3/ul (0-0.8); ABS Neutrophils 9.8 10^3/ul (1.5-7.7); Hematocrit 26 % (42-52); Hemoglobin 8.8 g/dL (14.0-18.0); Mean Corpuscular HGB Conc 34 g/dL (31-36); Mean Corpuscular Hemoglobin 34 pg (27-31); Mean Corpuscular Volume 103 fL (80-94); Mean Platelet Volume 9.4 fL (7.4-10.4); Platelet Count 150 10^3/uL (150-450); Red Blood Count 2.56 10^6 /uL (4.18-5.48); Red Cell Distribution Width 16 % (10-15); White Blood Count 11.9 10^3/uL (3.5-10.8)
[2020-05-17 09:01] LABS: Activated Partial Thrombo Time 25.8 seconds (26.0-38.0); INR 1.69 (0.82-1.09)
[2020-05-17] MEDS ORDERED: NS 0.9% 1000 ml BAG 1,000 ML IV ONE (09:06)
[2020-05-17] MEDS ORDERED: Pantoprazole 80 mg in NS BAG 80 MG/250 ML BAG IV ONE (09:07)
[2020-05-17 09:14] LABS: Albumin 2.8 g/dL (3.2-5.2); Albumin/Globulin Ratio 1.8 (1-3); Calcium 8.7 mg/dL (8.6-10.3); EGFR African American 51.2 (>60); EGFR Non-African American 42.3 (>60); Globulin 1.6 g/dL (2-4); Magnesium 1.3 mg/dL (1.9-2.7); Total Bilirubin 2.9 mg/dL (0.2-1.0); Total Protein 4.4 g/dL (6.4-8.9)
[2020-05-17] MEDS ORDERED: Pantoprazole VIAL 40 MG VIAL IV ONE (09:15)
[2020-05-17] MEDS ORDERED: Magnesium Sulfate 2 gm BAG 2 GM/50 ML BAG IVPB ONE (09:17)
[2020-05-17] MEDS ORDERED: Prothrombin Complex Conc. DOSE = Units Factor IX (nine) IV SLOW PU ONE (10:38)
[2020-05-17] MEDS: Norepinephrine 16MCG/ML IVPRE 4,000 MCG/250 ML BAG IV SCH ×2 (12:30→17:32)
[2020-05-17] MEDS ORDERED: Dextrose 50% Syringe 50 ml 25 GM/50 ML SYRINGE IV PUSH PRN (13:01)
[2020-05-17 13:05] LABS: Hematocrit 23 % (42-52); Hemoglobin 7.8 g/dL (14.0-18.0); Mean Corpuscular HGB Conc 34 g/dL (31-36); Mean Corpuscular Hemoglobin 33 pg (27-31); Mean Corpuscular Volume 99 fL (80-94); Mean Platelet Volume 8.7 fL (7.4-10.4); Platelet Count 125 10^3/uL (150-450); Red Blood Count 2.36 10^6 /uL (4.18-5.48); Red Cell Distribution Width 19 % (10-15); White Blood Count 12.1 10^3/uL (3.5-10.8)
[2020-05-17 13:29] LABS: Troponin I 0.06 ng/mL (<0.03)
[2020-05-17] MEDS ORDERED: Midazolam 10 mg/10 ml VIAL 1 mg/ml 10 ml VIAL (10 mg) ONE (14:18)
[2020-05-17] MEDS ORDERED: fentaNYL 100 mcg/2 ml 50 MCG/ML VIAL ONE (14:18)
[2020-05-17] MEDS ORDERED: Phenylephrine IV 50 MG in NS 0.9% 250 ml 245 ML IV SCH (15:00)
[2020-05-17] MEDS ORDERED: Magnesium Sulfate 2 gm BAG 2 GM/50 ML BAG ONE (16:28)
[2020-05-17] MEDS ORDERED: EPINEPHrine SYR 0.1MG/ML 10 ml SYRINGE ONE (16:35)
[2020-05-17 16:56] LABS: Hematocrit 32 % (42-52); Hemoglobin 11.1 g/dL (14.0-18.0); Mean Corpuscular HGB Conc 35 g/dL (31-36); Mean Corpuscular Hemoglobin 33 pg (27-31); Mean Corpuscular Volume 94 fL (80-94); Mean Platelet Volume 9.1 fL (7.4-10.4); Platelet Count 123 10^3/uL (150-450); Red Blood Count 3.39 10^6 /uL (4.18-5.48); Red Cell Distribution Width 17 % (10-15); White Blood Count 13.6 10^3/uL (3.5-10.8)
[2020-05-17 17:19] LABS: ALT 49 U/L (7-52); AST 45 U/L (13-39); Albumin 2.5 g/dL (3.2-5.2); Albumin/Globulin Ratio 2.1 (1-3); Alkaline Phosphatase 50 U/L (34-104); Anion Gap 6 mmol/L (2-11); BUN/Creatinine Ratio 37.6 (8-20); Blood Urea Nitrogen 64 mg/dL (6-24); CO2 Carbon Dioxide 25 mmol/L (22-32); Calcium 7.8 mg/dL (8.6-10.3); Chloride 105 mmol/L (101-111); EGFR African American 48.5 (>60); Globulin 1.2 g/dL (2-4); Glucose 164 mg/dL (70-100); Magnesium 1.6 mg/dL (1.9-2.7); Sodium 136 mmol/L (135-145); Total Protein 3.7 g/dL (6.4-8.9)
[2020-05-17 17:27] LABS: Troponin I 0.06 ng/mL (<0.03)
[2020-05-17 17:41] LABS: Urine Appearance Cloudy; Urine Bilirubin Negative (Negative); Urine Blood 2+ (Negative); Urine Color Amber; Urine Glucose Negative (Negative); Urine Ketones Negative (Negative); Urine Nitrite Negative (Negative); Urine Protein Negative (Negative); Urine Specific Gravity 1.017 (1.010-1.030); Urine Urobilinogen Negative (Negative)
[2020-05-17 17:51] LABS: Urine Bacteria Absent (Absent); Urine Granular Casts Present (Absent); Urine Red Blood Cell 1+(3-5/hpf) (Absent); Urine Squamous Epithelial Cell Present (Absent); Urine White Blood Cell Absent (Absent)
[2020-05-17 18:13] VITALS: BP 127/81
== END 2020-05-17 18:50 | disposition short-term general hospital (02) | DRG 377 ==
LOC: ED 08:36 → ICU 10:02
PROVIDERS: ADMIT Internal Medicine; ATTEND Internal Medicine

== ENCOUNTER 2020-10-12 11:37 | Inpatient (IN) ==
[2020-10-12] MEDS ORDERED: Dextrose 50% Syringe 50 ml 25 GM/50 ML SYRINGE IV PUSH PRN (17:57)
[2020-10-12 21:08] LABS: ABS Lymphocytes 0.5 10^3/ul (1.0-4.8); Eosinophil % 0.1 %; Hematocrit 33 % (42-52); Hemoglobin 10.7 g/dL (14.0-18.0); Mean Corpuscular HGB Conc 33 g/dL (31-36); Mean Corpuscular Hemoglobin 32 pg (27-31); Mean Corpuscular Volume 99 fL (80-94); Mean Platelet Volume 9.9 fL (7.4-10.4); Platelet Count 153 10^3/uL (150-450); Red Blood Count 3.31 10^6 /uL (4.18-5.48); Red Cell Distribution Width 16 % (10-15); White Blood Count 13.5 10^3/uL (3.5-10.8)
[2020-10-12 21:22] LABS: INR 1.59 (0.82-1.09)
[2020-10-12 21:23] LABS: Albumin 3.3 g/dL (3.2-5.2); Albumin/Globulin Ratio 1.1 (1-3); BUN/Creatinine Ratio 22.7 (8-20); C Reactive Protein 79.17 mg/L (<8.01); Calcium 9.5 mg/dL (8.6-10.3); EGFR African American 72.9 (>60); EGFR Non-African American 60.3 (>60); Potassium 2.9 mmol/L (3.5-5.0); Total Bilirubin 7.5 mg/dL (0.2-1.0); Total Protein 6.3 g/dL (6.4-8.9)
[2020-10-13] MEDS: KCL 20 MEQ/100 ML IVPREMIX 20 MEQ/100 ML BAG IV SCH ×4 (04:48→23:02)
[2020-10-13] MEDS ORDERED: Prochlorperazine 5 mg/ml 2 ml VIAL (10 mg) IV PRN (08:30)
[2020-10-13] MEDS ORDERED: D5W 1/2 NS 1000 ml BAG 1,000 ML IV SCH (09:00)
[2020-10-13] MEDS: cefTRIAXone 1 gm/50 mL NS BAG 1 GM/50 ML BAG IVPB SCH (10:50)
[2020-10-13 16:24] LABS: BUN/Creatinine Ratio 22.9 (8-20); Calcium 9.1 mg/dL (8.6-10.3); EGFR African American 73.6 (>60); EGFR Non-African American 60.9 (>60)
[2020-10-13 16:45] LABS: Magnesium 1.2 mg/dL (1.9-2.7)
[2020-10-13] MEDS ORDERED: Magnesium Sulf 4 GM/100 ML IV 4,000 MG/100 ML BAG IVPB ONE (17:16)
[2020-10-13] MEDS: D5W 1000 ml BAG 1,000 ML IV SCH ×2 (18:26→23:57)
[2020-10-13] MEDS ORDERED: Iodixanol (CONTRAST) 320 MG/ML 100 ML SDV IV ONE ×2 (19:24→22:16)
[2020-10-13 19:56] LABS: EGFR African American 77.4 (>60); Potassium 2.9 mmol/L (3.5-5.0)
[2020-10-14 00:38] LABS: Potassium 2.8 mmol/L (3.5-5.0)
[2020-10-14] MEDS: KCL 20 MEQ/100 ML IVPREMIX 20 MEQ/100 ML BAG IV SCH ×4 (01:13→09:43)
[2020-10-14] MEDS: D5W 1000 ml BAG 1,000 ML IV SCH ×2 (03:24→12:46)
[2020-10-14 07:14] LABS: BUN/Creatinine Ratio 20.8 (8-20); Calcium 8.7 mg/dL (8.6-10.3); EGFR African American 83.3 (>60); EGFR Non-African American 68.9 (>60); Magnesium 1.7 mg/dL (1.9-2.7)
[2020-10-14] MEDS ORDERED: Magnesium Sulfate 2 gm BAG 2 GM/50 ML BAG IVPB ONE (07:29)
[2020-10-14 08:58] LABS: Albumin 3.1 g/dL (3.2-5.2); Albumin/Globulin Ratio 1.1 (1-3); Globulin 2.9 g/dL (2-4); Total Bilirubin 6.1 mg/dL (0.2-1.0)
[2020-10-14] MEDS: cefTRIAXone 1 gm/50 mL NS BAG 1 GM/50 ML BAG IVPB SCH (09:46)
[2020-10-14] MEDS: Potassium Chloride LIQUID 20 MEQ/15 ML LIQUID PO SCH ×2 (12:46→21:36)
[2020-10-15] MEDS: D5W 1000 ml BAG 1,000 ML IV SCH (00:17)
[2020-10-15 06:00] LABS: BUN/Creatinine Ratio 18.4 (8-20); Calcium 8.6 mg/dL (8.6-10.3); EGFR African American 104.7 (>60); EGFR Non-African American 86.5 (>60); Globulin 2.9 g/dL (2-4); Potassium 3.3 mmol/L (3.5-5.0); Total Bilirubin 5.7 mg/dL (0.2-1.0); Total Protein 5.9 g/dL (6.4-8.9)
[2020-10-15] MEDS: Potassium Chloride LIQUID 20 MEQ/15 ML LIQUID PO SCH ×2 (08:13→21:28)
[2020-10-15] MEDS: cefTRIAXone 1 gm/50 mL NS BAG 1 GM/50 ML BAG IVPB SCH (08:41)
[2020-10-15] MEDS ORDERED: KCL 20 MEQ/100 ML IVPREMIX 20 MEQ/100 ML BAG IV ONE (12:11)
[2020-10-16 06:35] LABS: Albumin 3.2 g/dL (3.2-5.2); Calcium 8.8 mg/dL (8.6-10.3); EGFR Non-African American 90.1 (>60); Globulin 3.1 g/dL (2-4); Potassium 3.5 mmol/L (3.5-5.0); Total Bilirubin 6.4 mg/dL (0.2-1.0); Total Protein 6.3 g/dL (6.4-8.9)
[2020-10-16] MEDS: cefTRIAXone 1 gm/50 mL NS BAG 1 GM/50 ML BAG IVPB SCH (09:12)
[2020-10-16] MEDS: Potassium Chloride LIQUID 20 MEQ/15 ML LIQUID PO SCH ×2 (09:12→21:09)
[2020-10-17 07:01] LABS: ABS Basophils 0.1 10^3/ul (0-0.2); ABS Eosinophils 0.1 10^3/ul (0-0.6); ABS Lymphocytes 0.9 10^3/ul (1.0-4.8); ABS Monocytes 0.7 10^3/ul (0-0.8); ABS Neutrophils 5.8 10^3/ul (1.5-7.7); Eosinophil % 0.8 %; Hematocrit 29 % (42-52); Hemoglobin 9.6 g/dL (14.0-18.0); Lymphocyte % 12.1 %; Mean Corpuscular HGB Conc 33 g/dL (31-36); Mean Corpuscular Hemoglobin 32 pg (27-31); Mean Corpuscular Volume 98 fL (80-94); Mean Platelet Volume 10.1 fL (7.4-10.4); Platelet Count 185 10^3/uL (150-450); Red Blood Count 2.99 10^6 /uL (4.18-5.48); Red Cell Distribution Width 16 % (10-15); White Blood Count 7.5 10^3/uL (3.5-10.8)
[2020-10-17 07:16] LABS: Albumin 3.4 g/dL (3.2-5.2); Albumin/Globulin Ratio 1.1 (1-3); BUN/Creatinine Ratio 16.1 (8-20); C Reactive Protein 17.9 mg/L (<8.01); Calcium 8.8 mg/dL (8.6-10.3); EGFR African American 104.7 (>60); EGFR Non-African American 86.5 (>60); Globulin 3.1 g/dL (2-4); Indirect Bilirubin 3.1 mg/dL (0.3-1.0); Potassium 3.4 mmol/L (3.5-5.0); Total Bilirubin 6.3 mg/dL (0.2-1.0); Total Protein 6.5 g/dL (6.4-8.9)
[2020-10-17] MEDS: Potassium Chloride LIQUID 20 MEQ/15 ML LIQUID PO SCH ×2 (09:52→19:42)
[2020-10-17] MEDS: cefTRIAXone 1 gm/50 mL NS BAG 1 GM/50 ML BAG IVPB SCH (09:53)
[2020-10-18 07:29] LABS: ABS Eosinophils 0.1 10^3/ul (0-0.6); ABS Lymphocytes 0.9 10^3/ul (1.0-4.8); ABS Monocytes 0.8 10^3/ul (0-0.8); ABS Neutrophils 5.4 10^3/ul (1.5-7.7); Hematocrit 27 % (42-52); Hemoglobin 9.2 g/dL (14.0-18.0); Lymphocyte % 12.5 %; Mean Corpuscular HGB Conc 34 g/dL (31-36); Mean Corpuscular Hemoglobin 33 pg (27-31); Mean Corpuscular Volume 97 fL (80-94); Platelet Count 169 10^3/uL (150-450); Red Blood Count 2.82 10^6 /uL (4.18-5.48); Red Cell Distribution Width 17 % (10-15); White Blood Count 7.2 10^3/uL (3.5-10.8)
[2020-10-18 07:47] LABS: Albumin 3.1 g/dL (3.2-5.2); BUN/Creatinine Ratio 14.1 (8-20); Calcium 8.4 mg/dL (8.6-10.3); EGFR African American 98.1 (>60); EGFR Non-African American 81.1 (>60); Potassium 3.2 mmol/L (3.5-5.0); Total Bilirubin 5.7 mg/dL (0.2-1.0); Total Protein 6.1 g/dL (6.4-8.9)
[2020-10-18] MEDS: Potassium Chloride LIQUID 20 MEQ/15 ML LIQUID PO SCH ×3 (08:28→22:23)
[2020-10-18] MEDS: cefTRIAXone 1 gm/50 mL NS BAG 1 GM/50 ML BAG IVPB SCH (09:43)
[2020-10-18] MEDS ORDERED: Potassium Chlor 10 meq TAB PO ONE (16:06)
[2020-10-19 08:05] LABS: Calcium 8.4 mg/dL (8.6-10.3); Potassium 3.1 mmol/L (3.5-5.0)
[2020-10-19 08:11] LABS: BUN/Creatinine Ratio 10.3 (8-20); EGFR African American 92.3 (>60); EGFR Non-African American 76.3 (>60)
[2020-10-19 08:29] LABS: ABS Lymphocytes 0.9 10^3/ul (1.0-4.8); ABS Monocytes 0.9 10^3/ul (0-0.8); ABS Neutrophils 6.6 10^3/ul (1.5-7.7); Eosinophil % 0.5 %; Hematocrit 30 % (42-52); Hemoglobin 10.2 g/dL (14.0-18.0); Lymphocyte % 10.8 %; Mean Corpuscular HGB Conc 34 g/dL (31-36); Mean Corpuscular Hemoglobin 33 pg (27-31); Mean Corpuscular Volume 96 fL (80-94); Platelet Count 190 10^3/uL (150-450); Red Blood Count 3.14 10^6 /uL (4.18-5.48); Red Cell Distribution Width 17 % (10-15); White Blood Count 8.5 10^3/uL (3.5-10.8)
[2020-10-19] MEDS ORDERED: KCL 20 MEQ/100 ML IVPREMIX 20 MEQ/100 ML BAG IV ONE (09:52)
[2020-10-19] MEDS: Potassium Chloride LIQUID 20 MEQ/15 ML LIQUID PO SCH ×2 (10:22→20:20)
[2020-10-19] MEDS: cefTRIAXone 1 gm/50 mL NS BAG 1 GM/50 ML BAG IVPB SCH (11:22)
[2020-10-19 14:30] LABS: Albumin 3.2 g/dL (3.2-5.2); Globulin 3.2 g/dL (2-4); Indirect Bilirubin 3.4 mg/dL (0.3-1.0); Total Bilirubin 5.9 mg/dL (0.2-1.0); Total Protein 6.4 g/dL (6.4-8.9)
[2020-10-19 15:47] LABS: Calcium 8.6 mg/dL (8.6-10.3); Potassium 3.3 mmol/L (3.5-5.0)
[2020-10-19 15:52] LABS: BUN/Creatinine Ratio 11.2 (8-20); EGFR African American 91.2 (>60); EGFR Non-African American 75.4 (>60)
[2020-10-20] MEDS ORDERED: Alteplase (CATHFLO) 2 MG VIAL IV ONE (02:41)
[2020-10-20 04:26] LABS: ABS Basophils 0.1 10^3/ul (0-0.2); ABS Eosinophils 0.1 10^3/ul (0-0.6); ABS Lymphocytes 1.1 10^3/ul (1.0-4.8); ABS Neutrophils 5.6 10^3/ul (1.5-7.7); Eosinophil % 0.7 %; Hematocrit 29 % (42-52); Hemoglobin 9.9 g/dL (14.0-18.0); Lymphocyte % 14.3 %; Mean Corpuscular HGB Conc 34 g/dL (31-36); Mean Corpuscular Hemoglobin 32 pg (27-31); Mean Corpuscular Volume 95 fL (80-94); Mean Platelet Volume 9.6 fL (7.4-10.4); Platelet Count 194 10^3/uL (150-450); Red Blood Count 3.07 10^6 /uL (4.18-5.48); Red Cell Distribution Width 17 % (10-15); White Blood Count 7.8 10^3/uL (3.5-10.8)
[2020-10-20 04:43] LABS: Albumin 3.1 g/dL (3.2-5.2); Calcium 8.1 mg/dL (8.6-10.3); EGFR African American 73.6 (>60); EGFR Non-African American 60.9 (>60); Globulin 3.1 g/dL (2-4); Potassium 3.2 mmol/L (3.5-5.0); Total Protein 6.2 g/dL (6.4-8.9)
[2020-10-20] MEDS: Potassium Chloride LIQUID 20 MEQ/15 ML LIQUID PO SCH ×2 (09:52→20:28)
[2020-10-20] MEDS ORDERED: Potassium Chlor 20 meq TAB.ER PO ONE (10:19)
[2020-10-20] MEDS: cefTRIAXone 1 gm/50 mL NS BAG 1 GM/50 ML BAG IVPB SCH (12:27)
[2020-10-20 16:17] LABS: Folate > 20.00 ng/mL (>3.99)
[2020-10-20 16:18] LABS: Vitamin B12 > 1450 pg/mL (180-914)
[2020-10-21 05:30] LABS: ABS Basophils 0.1 10^3/ul (0-0.2); ABS Eosinophils 0.1 10^3/ul (0-0.6); ABS Lymphocytes 1.1 10^3/ul (1.0-4.8); ABS Neutrophils 5.5 10^3/ul (1.5-7.7); Eosinophil % 1.3 %; Hematocrit 30 % (42-52); Lymphocyte % 14.7 %; Mean Corpuscular HGB Conc 33 g/dL (31-36); Mean Corpuscular Hemoglobin 32 pg (27-31); Mean Corpuscular Volume 97 fL (80-94); Mean Platelet Volume 9.8 fL (7.4-10.4); Platelet Count 191 10^3/uL (150-450); Red Blood Count 3.09 10^6 /uL (4.18-5.48); Red Cell Distribution Width 17 % (10-15); White Blood Count 7.8 10^3/uL (3.5-10.8)
[2020-10-21 05:37] LABS: INR 2.12 (0.82-1.09)
[2020-10-21 05:50] LABS: Albumin 3.2 g/dL (3.2-5.2); BUN/Creatinine Ratio 14.2 (8-20); EGFR African American 77.4 (>60); Globulin 3.1 g/dL (2-4); Potassium 3.8 mmol/L (3.5-5.0); Total Bilirubin 4.7 mg/dL (0.2-1.0); Total Protein 6.3 g/dL (6.4-8.9)
[2020-10-21] MEDS: Potassium Chloride LIQUID 20 MEQ/15 ML LIQUID PO SCH ×2 (09:32→10:10)
[2020-10-21] MEDS: Potassium Chlor 20 meq TAB.ER PO SCH ×2 (10:42→20:50)
[2020-10-22 05:51] LABS: ABS Basophils 0.1 10^3/ul (0-0.2); ABS Lymphocytes 1.3 10^3/ul (1.0-4.8); ABS Monocytes 1.2 10^3/ul (0-0.8); ABS Neutrophils 6.8 10^3/ul (1.5-7.7); Eosinophil % 0.5 %; Hematocrit 34 % (42-52); Hemoglobin 11.3 g/dL (14.0-18.0); Lymphocyte % 13.8 %; Mean Corpuscular HGB Conc 34 g/dL (31-36); Mean Corpuscular Hemoglobin 32 pg (27-31); Mean Corpuscular Volume 96 fL (80-94); Mean Platelet Volume 9.6 fL (7.4-10.4); Nucleated Red Blood Cells % 0.1; Platelet Count 264 10^3/uL (150-450); Red Blood Count 3.53 10^6 /uL (4.18-5.48); Red Cell Distribution Width 17 % (10-15); White Blood Count 9.5 10^3/uL (3.5-10.8)
[2020-10-22 06:04] LABS: Albumin 3.5 g/dL (3.2-5.2); Albumin/Globulin Ratio 0.9 (1-3); BUN/Creatinine Ratio 13.5 (8-20); C Reactive Protein 20.57 mg/L (<8.01); Calcium 8.4 mg/dL (8.6-10.3); EGFR African American 68.3 (>60); EGFR Non-African American 56.4 (>60); Globulin 3.8 g/dL (2-4); Potassium 4.1 mmol/L (3.5-5.0); Total Protein 7.3 g/dL (6.4-8.9)
[2020-10-22] MEDS: Potassium Chlor 20 meq TAB.ER PO SCH ×2 (09:04→20:23)
[2020-10-23 05:49] LABS: BUN/Creatinine Ratio 17.5 (8-20); C Reactive Protein 66.79 mg/L (<8.01); Calcium 8.6 mg/dL (8.6-10.3); EGFR African American 68.3 (>60); EGFR Non-African American 56.4 (>60); Potassium 4.4 mmol/L (3.5-5.0)
[2020-10-23] MEDS: Potassium Chlor 20 meq TAB.ER PO SCH ×2 (09:22→19:59)
[2020-10-23 12:46] LABS: Urine Appearance Clear; Urine Bilirubin Negative (Negative); Urine Blood Negative (Negative); Urine Color Amber; Urine Glucose Negative (Negative); Urine Ketones Negative (Negative); Urine Nitrite Negative (Negative); Urine Protein Negative (Negative); Urine Urobilinogen Negative (Negative)
[2020-10-23] MEDS ORDERED: Thiamine 100 MG/ML 2 ml VIAL (200 mg) IV SCH (13:00)
[2020-10-23] MEDS ORDERED: Gadoteridol (CONTRAST) 279.3 MG/ML 10 ML IV ONE (14:37)
[2020-10-23] MEDS: Thiamine IV 500 MG in NS 0.9% 250 ML (Wernicke-Korsakoff) IV SCH ×2 (14:45→20:52)
[2020-10-24] MEDS: Thiamine IV 500 MG in NS 0.9% 250 ML (Wernicke-Korsakoff) IV SCH ×3 (04:06→20:13)
[2020-10-24 04:22] LABS: ABS Basophils 0.1 10^3/ul (0-0.2); ABS Eosinophils 0.1 10^3/ul (0-0.6); ABS Lymphocytes 1.2 10^3/ul (1.0-4.8); ABS Neutrophils 6.8 10^3/ul (1.5-7.7); Eosinophil % 1.4 %; Hematocrit 32 % (42-52); Hemoglobin 10.7 g/dL (14.0-18.0); Lymphocyte % 13.1 %; Mean Corpuscular HGB Conc 33 g/dL (31-36); Mean Corpuscular Hemoglobin 32 pg (27-31); Mean Corpuscular Volume 96 fL (80-94); Mean Platelet Volume 9.4 fL (7.4-10.4); Platelet Count 238 10^3/uL (150-450); Red Blood Count 3.38 10^6 /uL (4.18-5.48); Red Cell Distribution Width 16 % (10-15); White Blood Count 9.3 10^3/uL (3.5-10.8)
[2020-10-24 04:50] LABS: BUN/Creatinine Ratio 16.8 (8-20); Calcium 8.5 mg/dL (8.6-10.3); EGFR African American 49.3 (>60); EGFR Non-African American 40.8 (>60)
[2020-10-24 04:51] LABS: Potassium 5.1 mmol/L (3.5-5.0)
[2020-10-24] MEDS: Potassium Chlor 20 meq TAB.ER PO SCH (09:45)
[2020-10-24 15:05] LABS: Albumin 3.1 g/dL (3.2-5.2); Albumin/Globulin Ratio 0.8 (1-3); Globulin 3.7 g/dL (2-4); Total Bilirubin 4.1 mg/dL (0.2-1.0); Total Protein 6.8 g/dL (6.4-8.9)
[2020-10-24] MEDS: Analgesic BALM 114 GM TOPICAL SCH (20:13)
[2020-10-25] MEDS: Thiamine IV 500 MG in NS 0.9% 250 ML (Wernicke-Korsakoff) IV SCH ×3 (05:36→20:48)
[2020-10-25 06:22] LABS: ABS Basophils 0.1 10^3/ul (0-0.2); ABS Eosinophils 0.2 10^3/ul (0-0.6); ABS Lymphocytes 1.2 10^3/ul (1.0-4.8); ABS Monocytes 0.8 10^3/ul (0-0.8); ABS Neutrophils 4.4 10^3/ul (1.5-7.7); Eosinophil % 2.4 %; Hematocrit 31 % (42-52); Hemoglobin 10.3 g/dL (14.0-18.0); Lymphocyte % 17.9 %; Mean Corpuscular HGB Conc 33 g/dL (31-36); Mean Corpuscular Hemoglobin 32 pg (27-31); Mean Corpuscular Volume 96 fL (80-94); Mean Platelet Volume 9.5 fL (7.4-10.4); Platelet Count 255 10^3/uL (150-450); Red Blood Count 3.21 10^6 /uL (4.18-5.48); Red Cell Distribution Width 16 % (10-15); White Blood Count 6.6 10^3/uL (3.5-10.8)
[2020-10-25 06:31] LABS: BUN/Creatinine Ratio 19.3 (8-20); C Reactive Protein 34.71 mg/L (<8.01); Calcium 8.6 mg/dL (8.6-10.3); EGFR African American 58.1 (>60); Potassium 4.7 mmol/L (3.5-5.0)
[2020-10-25] MEDS: Analgesic BALM 114 GM TOPICAL SCH ×2 (09:30→20:48)
[2020-10-26] MEDS: Thiamine IV 500 MG in NS 0.9% 250 ML (Wernicke-Korsakoff) IV SCH ×2 (04:15→14:53)
[2020-10-26] MEDS: Analgesic BALM 114 GM TOPICAL SCH ×2 (08:50→20:42)
[2020-10-27 05:12] LABS: BUN/Creatinine Ratio 21.5 (8-20); EGFR African American 96.9 (>60); EGFR Non-African American 80.1 (>60)
[2020-10-27] MEDS: Analgesic BALM 114 GM TOPICAL SCH ×2 (09:39→20:32)
[2020-10-27] MEDS ORDERED: Buprenorp/Nalox 2-0.5 mg SL TB SL PRN (16:38)
[2020-10-28 05:53] LABS: ABS Basophils 0.1 10^3/ul (0-0.2); ABS Eosinophils 0.2 10^3/ul (0-0.6); ABS Lymphocytes 1.2 10^3/ul (1.0-4.8); ABS Monocytes 0.7 10^3/ul (0-0.8); ABS Neutrophils 3.8 10^3/ul (1.5-7.7); Eosinophil % 2.8 %; Hematocrit 31 % (42-52); Hemoglobin 10.1 g/dL (14.0-18.0); Lymphocyte % 19.9 %; Mean Corpuscular HGB Conc 33 g/dL (31-36); Mean Corpuscular Hemoglobin 32 pg (27-31); Mean Corpuscular Volume 97 fL (80-94); Mean Platelet Volume 8.7 fL (7.4-10.4); Platelet Count 207 10^3/uL (150-450); Red Blood Count 3.16 10^6 /uL (4.18-5.48); Red Cell Distribution Width 16 % (10-15); White Blood Count 5.9 10^3/uL (3.5-10.8)
[2020-10-28 06:20] LABS: ALT 47 U/L (7-52); AST 39 U/L (13-39); Albumin 3.1 g/dL (3.2-5.2); Albumin/Globulin Ratio 0.8 (1-3); Alkaline Phosphatase 137 U/L (34-104); Anion Gap 5 mmol/L (2-11); BUN/Creatinine Ratio 22.3 (8-20); Blood Urea Nitrogen 21 mg/dL (6-24); CO2 Carbon Dioxide 26 mmol/L (22-32); Calcium 8.9 mg/dL (8.6-10.3); Chloride 103 mmol/L (101-111); EGFR African American 95.7 (>60); EGFR Non-African American 79.1 (>60); Globulin 3.7 g/dL (2-4); Glucose 105 mg/dL (70-100); Magnesium 1.3 mg/dL (1.9-2.7); Potassium 4.3 mmol/L (3.5-5.0); Sodium 134 mmol/L (135-145); Total Protein 6.8 g/dL (6.4-8.9)
[2020-10-28 06:21] LABS: % Iron Saturation 16 % (15-55); Iron 40 ug/dL (50-212); Total Iron Binding Capacity 248 mcg/dL (250-450); Transferrin 177 mg/dL (203-362); Unsaturated Iron Binding < 233 ug/dL
[2020-10-28 06:41] LABS: Ferritin 305.7 ng/mL (24-336)
[2020-10-28] MEDS ORDERED: Magnesium Sulf 4 GM/100 ML IV 4,000 MG/100 ML BAG IVPB ONE (07:30)
[2020-10-28] MEDS: Iron Sucrose 200 MG in NS 0.9% 100 ml BAG 100 ML IVPB SCH ×2 (08:55→08:56)
[2020-10-28] MEDS: Analgesic BALM 114 GM TOPICAL SCH ×2 (09:07→21:31)
[2020-10-29] MEDS: Analgesic BALM 114 GM TOPICAL SCH ×2 (08:42→20:51)
[2020-10-29] MEDS: Iron Sucrose 200 MG in NS 0.9% 100 ml BAG 100 ML IVPB SCH (09:33)
[2020-10-30] MEDS: Iron Sucrose 200 MG in NS 0.9% 100 ml BAG 100 ML IVPB SCH (08:32)
[2020-10-30] MEDS: Analgesic BALM 114 GM TOPICAL SCH ×2 (08:46→19:41)
[2020-10-31] MEDS: Analgesic BALM 114 GM TOPICAL SCH (08:49)
[2020-10-31] MEDS: Iron Sucrose 200 MG in NS 0.9% 100 ml BAG 100 ML IVPB SCH (08:53)
[2020-10-31 09:01] LABS: ABS Basophils 0.1 10^3/ul (0-0.2); ABS Eosinophils 0.1 10^3/ul (0-0.6); ABS Lymphocytes 1.1 10^3/ul (1.0-4.8); ABS Monocytes 0.4 10^3/ul (0-0.8); ABS Neutrophils 3.7 10^3/ul (1.5-7.7); Eosinophil % 1.8 %; Hematocrit 30 % (42-52); Hemoglobin 9.8 g/dL (14.0-18.0); Lymphocyte % 20.9 %; Mean Corpuscular HGB Conc 33 g/dL (31-36); Mean Corpuscular Hemoglobin 32 pg (27-31); Mean Corpuscular Volume 97 fL (80-94); Mean Platelet Volume 8.3 fL (7.4-10.4); Platelet Count 193 10^3/uL (150-450); Red Blood Count 3.08 10^6 /uL (4.18-5.48); Red Cell Distribution Width 16 % (10-15); White Blood Count 5.4 10^3/uL (3.5-10.8)
[2020-10-31 09:19] LABS: Albumin/Globulin Ratio 0.7 (1-3); BUN/Creatinine Ratio 24.3 (8-20); Calcium 9.2 mg/dL (8.6-10.3); EGFR African American 126.2 (>60); EGFR Non-African American 104.3 (>60); Globulin 4.1 g/dL (2-4); Magnesium 1.3 mg/dL (1.9-2.7); Potassium 4.2 mmol/L (3.5-5.0); Total Bilirubin 1.8 mg/dL (0.2-1.0); Total Protein 7.1 g/dL (6.4-8.9)
[2020-10-31] MEDS ORDERED: Magnesium Sulf 4 GM/100 ML IV 4,000 MG/100 ML BAG IVPB ONE (11:00)
[2020-10-31 12:15] VITALS: BP 113/66
== END 2020-10-31 14:12 | DRG 445 ==
LOC: MEDTELE 16:59
PROVIDERS: ADMIT Hospitalist; ATTEND Internal Medicine

== ENCOUNTER 2020-11-17 09:09 | Inpatient (IN) ==
[2020-11-17 10:32] LABS: ABS Lymphocytes 0.4 10^3/ul (1.0-4.8); ABS Monocytes 0.4 10^3/ul (0-0.8); ABS Neutrophils 2.5 10^3/ul (1.5-7.7); Eosinophil % 0.2 %; Hematocrit 28 % (42-52); Hemoglobin 9.2 g/dL (14.0-18.0); Lymphocyte % 11.3 %; Mean Corpuscular HGB Conc 33 g/dL (31-36); Mean Corpuscular Hemoglobin 31 pg (27-31); Mean Corpuscular Volume 94 fL (80-94); Mean Platelet Volume 7.7 fL (7.4-10.4); Nucleated Red Blood Cells % 0.1; Platelet Count 228 10^3/uL (150-450); Red Blood Count 2.96 10^6 /uL (4.18-5.48); Red Cell Distribution Width 16 % (10-15); White Blood Count 3.3 10^3/uL (3.5-10.8)
[2020-11-17 10:50] LABS: ALT 24 U/L (7-52); AST 27 U/L (13-39); Albumin/Globulin Ratio 0.8 (1-3); Alkaline Phosphatase 135 U/L (34-104); Anion Gap 8 mmol/L (2-11); BUN/Creatinine Ratio 16.3 (8-20); Blood Urea Nitrogen 13 mg/dL (6-24); C Reactive Protein 8.29 mg/L (<8.01); CO2 Carbon Dioxide 29 mmol/L (22-32); Calcium 7.7 mg/dL (8.6-10.3); Chloride 95 mmol/L (101-111); EGFR African American 115.3 (>60); EGFR Non-African American 95.3 (>60); Glucose 104 mg/dL (70-100); Potassium 3.1 mmol/L (3.5-5.0); Sodium 132 mmol/L (135-145)
[2020-11-17 10:52] LABS: Influenza A Molecular Negative (Negative); Influenza B Molecular Negative (Negative)
[2020-11-17 10:55] LABS: Magnesium 0.8 mg/dL (1.9-2.7)
[2020-11-17] MEDS ORDERED: Magnesium Sulf 4 GM/100 ML IV 4,000 MG/100 ML BAG IVPB ONE (10:55)
[2020-11-17] MEDS ORDERED: Potassium Chlor 20 meq TAB.ER PO ONE (10:58)
[2020-11-17] MEDS ORDERED: NS 0.9% 1000 ml BAG 1,000 ML IV ONE (10:59)
[2020-11-17 11:06] LABS: Activated Partial Thrombo Time 34.8 seconds (26.0-38.0); INR 2.04 (0.82-1.09)
[2020-11-17 11:37] LABS: Ferritin 396.2 ng/mL (24-336)
[2020-11-17 11:51] LABS: LDH 135 U/L (140-271)
[2020-11-17 13:06] LABS: Urine Appearance Clear; Urine Bilirubin Negative (Negative); Urine Blood 1+ (Negative); Urine Color Yellow; Urine Glucose Negative (Negative); Urine Ketones Negative (Negative); Urine Nitrite Negative (Negative); Urine Protein Negative (Negative); Urine Specific Gravity 1.016 (1.010-1.030); Urine Urobilinogen Positive (Negative)
[2020-11-17 13:12] LABS: Urine Bacteria Absent (Absent); Urine Red Blood Cell Trace(0-2/hpf) (Absent); Urine Squamous Epithelial Cell Present (Absent); Urine White Blood Cell Trace(0-5/hpf) (Absent)
[2020-11-17] MEDS ORDERED: Dextrose 50% Syringe 50 ml 25 GM/50 ML SYRINGE IV PUSH PRN (18:13)
[2020-11-17 18:26] LABS: Alcohol, S < 10 mg/dL (<10)
[2020-11-17] MEDS: Albuterol HFA INHALER 8 gm MDI INH SCH (21:07)
[2020-11-18] MEDS: Albuterol HFA INHALER 8 gm MDI INH SCH ×2 (01:15→03:10)
[2020-11-18] MEDS ORDERED: Albuterol HFA INHALER 8 gm MDI INH PRN (03:10)
[2020-11-18] MEDS ORDERED: Magnesium Sulf 4 GM/100 ML IV 4,000 MG/100 ML BAG IVPB ONE (04:24)
[2020-11-18] MEDS ORDERED: Remdesivir 100 mg Vial 200 MG in NS 0.9% 250 ml 210 ML IV ONE (05:00)
[2020-11-18 07:31] LABS: ABS Lymphocytes 0.8 10^3/ul (1.0-4.8); ABS Monocytes 0.2 10^3/ul (0-0.8); ABS Neutrophils 1.7 10^3/ul (1.5-7.7); Eosinophil % 0.5 %; Hematocrit 27 % (42-52); Hemoglobin 8.8 g/dL (14.0-18.0); Lymphocyte % 28.1 %; Mean Corpuscular HGB Conc 33 g/dL (31-36); Mean Corpuscular Hemoglobin 31 pg (27-31); Mean Corpuscular Volume 95 fL (80-94); Mean Platelet Volume 7.6 fL (7.4-10.4); Nucleated Red Blood Cells % 0.4; Platelet Count 186 10^3/uL (150-450); Red Cell Distribution Width 16 % (10-15); White Blood Count 2.8 10^3/uL (3.5-10.8)
[2020-11-18 07:48] LABS: Albumin 2.7 g/dL (3.2-5.2); Albumin/Globulin Ratio 0.7 (1-3); BUN/Creatinine Ratio 15.3 (8-20); Calcium 7.6 mg/dL (8.6-10.3); EGFR African American 163.9 (>60); EGFR Non-African American 135.4 (>60); Globulin 3.8 g/dL (2-4); Potassium 3.4 mmol/L (3.5-5.0); Total Bilirubin 1.1 mg/dL (0.2-1.0); Total Protein 6.5 g/dL (6.4-8.9)
[2020-11-18] MEDS ORDERED: Potassium Chlor 20 meq TAB.ER PO ONE (08:22)
[2020-11-18] MEDS: CMCS: Simvastatin 20 mg TAB (NF) PO SCH (08:33)
[2020-11-18] MEDS: Potassium Chlor 20 meq TAB.ER PO SCH (08:55)
[2020-11-19 05:59] LABS: ABS Lymphocytes 0.8 10^3/ul (1.0-4.8); ABS Monocytes 0.3 10^3/ul (0-0.8); ABS Neutrophils 1.6 10^3/ul (1.5-7.7); Hematocrit 27 % (42-52); Hemoglobin 9.2 g/dL (14.0-18.0); Lymphocyte % 30.8 %; Mean Corpuscular HGB Conc 33 g/dL (31-36); Mean Corpuscular Hemoglobin 32 pg (27-31); Mean Corpuscular Volume 94 fL (80-94); Mean Platelet Volume 7.6 fL (7.4-10.4); Platelet Count 184 10^3/uL (150-450); Red Blood Count 2.91 10^6 /uL (4.18-5.48); Red Cell Distribution Width 16 % (10-15); White Blood Count 2.7 10^3/uL (3.5-10.8)
[2020-11-19 06:07] LABS: Calcium 7.8 mg/dL (8.6-10.3); Potassium 3.1 mmol/L (3.5-5.0)
[2020-11-19 06:13] LABS: BUN/Creatinine Ratio 20.3 (8-20); EGFR African American 163.9 (>60); EGFR Non-African American 135.4 (>60)
[2020-11-19] MEDS ORDERED: Potassium Chloride LIQUID 20 MEQ/15 ML LIQUID PO ONE (08:06)
[2020-11-19] MEDS: Remdesivir 100 mg Vial 100 MG in NS 0.9% 250 ml 230 ML IV SCH (10:14)
[2020-11-19] MEDS: Potassium Chlor 20 meq TAB.ER PO SCH (10:17)
[2020-11-19] MEDS: CMCS: Simvastatin 20 mg TAB (NF) PO SCH (10:18)
[2020-11-20 05:49] LABS: ABS Lymphocytes 0.8 10^3/ul (1.0-4.8); ABS Monocytes 0.3 10^3/ul (0-0.8); ABS Neutrophils 1.9 10^3/ul (1.5-7.7); Hematocrit 29 % (42-52); Hemoglobin 9.3 g/dL (14.0-18.0); Lymphocyte % 26.6 %; Mean Corpuscular HGB Conc 32 g/dL (31-36); Mean Corpuscular Hemoglobin 31 pg (27-31); Mean Corpuscular Volume 94 fL (80-94); Mean Platelet Volume 7.8 fL (7.4-10.4); Platelet Count 189 10^3/uL (150-450); Red Blood Count 3.05 10^6 /uL (4.18-5.48); Red Cell Distribution Width 16 % (10-15); White Blood Count 2.9 10^3/uL (3.5-10.8)
[2020-11-20 06:13] LABS: BUN/Creatinine Ratio 31.1 (8-20); Calcium 7.9 mg/dL (8.6-10.3); EGFR African American 157.7 (>60); EGFR Non-African American 130.3 (>60); Magnesium 1.1 mg/dL (1.9-2.7)
[2020-11-20] MEDS ORDERED: Magnesium Sulf 4 GM/100 ML IV 4,000 MG/100 ML BAG IVPB ONE (07:03)
[2020-11-20] MEDS ORDERED: Potassium Chlor 20 meq TAB.ER PO ONE ×2 (07:04→12:00)
[2020-11-20] MEDS: Remdesivir 100 mg Vial 100 MG in NS 0.9% 250 ml 230 ML IV SCH (08:12)
[2020-11-20] MEDS: CMCS: Simvastatin 20 mg TAB (NF) PO SCH (08:14)
[2020-11-20] MEDS: Potassium Chlor 20 meq TAB.ER PO SCH (08:19)
[2020-11-20] MEDS ORDERED: Potassium Chlor 20 meq TAB.ER PO SCH ×2 (09:00→12:00)
[2020-11-21 09:19] LABS: BUN/Creatinine Ratio 35.8 (8-20); Calcium 8.6 mg/dL (8.6-10.3); EGFR African American 141.5 (>60); EGFR Non-African American 116.9 (>60); Magnesium 1.6 mg/dL (1.9-2.7); Potassium 3.3 mmol/L (3.5-5.0)
[2020-11-21] MEDS: Remdesivir 100 mg Vial 100 MG in NS 0.9% 250 ml 230 ML IV SCH (09:30)
[2020-11-21] MEDS: Potassium Chlor 20 meq TAB.ER PO SCH (09:58)
[2020-11-21] MEDS: CMCS: Simvastatin 20 mg TAB (NF) PO SCH (09:59)
[2020-11-21] MEDS ORDERED: Potassium Chlor 20 meq TAB.ER PO ONE (11:50)
[2020-11-21] MEDS ORDERED: Magnesium Sulfate IV 3 GM in NS 0.9% 100 ml BAG 100 ML IVPB ONE (12:00)
[2020-11-21 12:19] VITALS: BP 112/65
== END 2020-11-21 15:55 | disposition home or self-care (01) | DRG 177 ==
LOC: ED 09:09 → MED 09:09
PROVIDERS: ADMIT Student in an Organized Health Care Education/Training Program; ATTEND Hospitalist

== ENCOUNTER 2020-12-03 17:22 | Observation (INO) ==
[2020-12-03] MEDS ORDERED: NS 0.9% 1000 ml BAG 1,000 ML IV ONE (18:21)
[2020-12-03 18:50] LABS: ABS Lymphocytes 0.9 10^3/ul (1.0-4.8); ABS Monocytes 0.7 10^3/ul (0-0.8); Eosinophil % 0.2 %; Hematocrit 34 % (42-52); Lymphocyte % 10.5 %; Mean Corpuscular HGB Conc 33 g/dL (31-36); Mean Corpuscular Hemoglobin 30 pg (27-31); Mean Corpuscular Volume 92 fL (80-94); Platelet Count 127 10^3/uL (150-450); Red Blood Count 3.64 10^6 /uL (4.18-5.48); Red Cell Distribution Width 16 % (10-15); White Blood Count 8.6 10^3/uL (3.5-10.8)
[2020-12-03 19:03] LABS: Activated Partial Thrombo Time 33.8 seconds (26.0-38.0); INR 1.53 (0.82-1.09)
[2020-12-03 19:07] LABS: ALT 54 U/L (7-52); AST 39 U/L (13-39); Albumin 3.2 g/dL (3.2-5.2); Albumin/Globulin Ratio 0.9 (1-3); Alkaline Phosphatase 163 U/L (34-104); Anion Gap 6 mmol/L (2-11); BUN/Creatinine Ratio 26.7 (8-20); Blood Urea Nitrogen 24 mg/dL (6-24); C Reactive Protein 85.42 mg/L (<8.01); CO2 Carbon Dioxide 25 mmol/L (22-32); Calcium 8.9 mg/dL (8.6-10.3); Chloride 100 mmol/L (101-111); EGFR African American 100.7 (>60); EGFR Non-African American 83.2 (>60); Globulin 3.5 g/dL (2-4); Glucose 102 mg/dL (70-100); Influenza A Molecular Negative (Negative); Influenza B Molecular Negative (Negative); Magnesium 1.6 mg/dL (1.9-2.7); Potassium 5.9 mmol/L (3.5-5.0); Sodium 131 mmol/L (135-145); Total Protein 6.7 g/dL (6.4-8.9)
[2020-12-03 19:09] LABS: Troponin I 0.02 ng/mL (<0.03)
[2020-12-03 19:14] LABS: Alcohol, S < 10 mg/dL (<10); LDH 189 U/L (140-271)
[2020-12-03 19:34] LABS: Ferritin 601.1 ng/mL (24-336)
[2020-12-03 20:16] LABS: Urine Appearance Clear; Urine Bilirubin Negative (Negative); Urine Blood Negative (Negative); Urine Color Amber; Urine Glucose Negative (Negative); Urine Ketones Negative (Negative); Urine Nitrite Negative (Negative); Urine Protein Negative (Negative); Urine Specific Gravity 1.019 (1.010-1.030); Urine Urobilinogen Positive (Negative)
[2020-12-03] MEDS ORDERED: Sodium Polystyrene ORAL.SUSP 15 GM/60 ML BTL PO ONE (21:24)
[2020-12-03] MEDS ORDERED: CALCIUM GLUCONATE 1GM/50ML NS 1 GM/50 ML BAG IV ONE ×2 (21:24→23:33)
[2020-12-03] MEDS ORDERED: Dextrose 50% Syringe 50 ml 25 GM/50 ML SYRINGE IV PUSH ONE ×2 (21:24→23:31)
[2020-12-03 21:39] LABS: Albumin 2.8 g/dL (3.2-5.2); Albumin/Globulin Ratio 0.8 (1-3); BUN/Creatinine Ratio 27.3 (8-20); Calcium 8.7 mg/dL (8.6-10.3); EGFR African American 103.3 (>60); EGFR Non-African American 85.4 (>60); Globulin 3.3 g/dL (2-4); Total Bilirubin 1.4 mg/dL (0.2-1.0); Total Protein 6.1 g/dL (6.4-8.9)
[2020-12-03 21:40] LABS: Potassium 5.6 mmol/L (3.5-5.0); Urine Benzodiazepine Screen None Detected (None Detect); Urine Cannabinoids Screen Presumptive Positive (None Detect); Urine Opiates Screen None Detected (None Detect)
[2020-12-03] MEDS ORDERED: Dextrose 50% Syringe 50 ml 25 GM/50 ML SYRINGE IV PUSH PRN (21:46)
[2020-12-03] MEDS ORDERED: Ondansetron 4 mg VIAL 2 MG/ML 2 ml VIAL IV PRN (21:46)
[2020-12-03] MEDS ORDERED: Magnesium Sulfate 2 gm BAG 2 GM/50 ML BAG IVPB ONE (21:46)
[2020-12-03] MEDS ORDERED: NS 0.9% 1000 ml BAG 1,000 ML IV SCH (22:00)
[2020-12-04] MEDS ORDERED: Sodium Polystyrene ORAL.SUSP 15 GM/60 ML BTL PO ONE (08:07)
[2020-12-04 10:01] LABS: ABS Eosinophils 0.1 10^3/ul (0-0.6); ABS Lymphocytes 0.9 10^3/ul (1.0-4.8); ABS Monocytes 0.5 10^3/ul (0-0.8); ABS Neutrophils 4.6 10^3/ul (1.5-7.7); Hematocrit 30 % (42-52); Hemoglobin 9.8 g/dL (14.0-18.0); Lymphocyte % 14.7 %; Mean Corpuscular HGB Conc 33 g/dL (31-36); Mean Corpuscular Hemoglobin 30 pg (27-31); Mean Corpuscular Volume 93 fL (80-94); Platelet Count 116 10^3/uL (150-450); Red Blood Count 3.23 10^6 /uL (4.18-5.48); Red Cell Distribution Width 16 % (10-15)
[2020-12-04 10:07] LABS: INR 1.2 (0.82-1.09)
[2020-12-04 10:17] LABS: Anion Gap 6 mmol/L (2-11); BUN/Creatinine Ratio 26.4 (8-20); Blood Urea Nitrogen 19 mg/dL (6-24); CO2 Carbon Dioxide 23 mmol/L (22-32); Calcium 8.8 mg/dL (8.6-10.3); Chloride 103 mmol/L (101-111); EGFR African American 130.2 (>60); EGFR Non-African American 107.6 (>60); Glucose 163 mg/dL (70-100); Magnesium 1.7 mg/dL (1.9-2.7); Potassium 3.8 mmol/L (3.5-5.0); Sodium 132 mmol/L (135-145)
[2020-12-04] MEDS ORDERED: Magnesium Sulfate 2 gm BAG 2 GM/50 ML BAG IVPB ONE (10:22)
[2020-12-04 11:11] LABS: TSH Ultra Thyroid Stim Horm 0.68 mcIU/mL (0.34-5.60)
[2020-12-04 11:23] LABS: Folate > 20.00 ng/mL (>3.99)
[2020-12-05 07:03] LABS: Albumin 2.8 g/dL (3.2-5.2); Albumin/Globulin Ratio 0.8 (1-3); BUN/Creatinine Ratio 21.3 (8-20); Calcium 8.8 mg/dL (8.6-10.3); EGFR African American 115.3 (>60); EGFR Non-African American 95.3 (>60); Globulin 3.4 g/dL (2-4); Magnesium 1.6 mg/dL (1.9-2.7); Potassium 3.2 mmol/L (3.5-5.0); Total Bilirubin 1.2 mg/dL (0.2-1.0); Total Protein 6.2 g/dL (6.4-8.9)
[2020-12-05 07:11] LABS: ABS Eosinophils 0.1 10^3/ul (0-0.6); ABS Lymphocytes 1.2 10^3/ul (1.0-4.8); ABS Monocytes 0.5 10^3/ul (0-0.8); ABS Neutrophils 3.8 10^3/ul (1.5-7.7); Eosinophil % 2.5 %; Hematocrit 31 % (42-52); Hemoglobin 10.3 g/dL (14.0-18.0); Lymphocyte % 21.7 %; Mean Corpuscular HGB Conc 33 g/dL (31-36); Mean Corpuscular Hemoglobin 30 pg (27-31); Mean Corpuscular Volume 93 fL (80-94); Mean Platelet Volume 8.6 fL (7.4-10.4); Platelet Count 130 10^3/uL (150-450); Red Blood Count 3.39 10^6 /uL (4.18-5.48); Red Cell Distribution Width 16 % (10-15); White Blood Count 5.7 10^3/uL (3.5-10.8)
[2020-12-05] MEDS ORDERED: Potassium Chlor 10 meq TAB PO ONE (11:14)
[2020-12-06 07:19] VITALS: BP 132/62
[2020-12-06 10:14] LABS: BUN/Creatinine Ratio 17.9 (8-20); EGFR African American 141.5 (>60); EGFR Non-African American 116.9 (>60); Magnesium 1.5 mg/dL (1.9-2.7); Potassium 3.3 mmol/L (3.5-5.0)
== END 2020-12-06 14:40 | disposition home or self-care (01) ==
LOC: ED 17:22 → MED 17:22
PROVIDERS: ADMIT Internal Medicine; ATTEND Internal Medicine

== ENCOUNTER 2021-02-14 02:41 | Inpatient (IN) ==
[2021-02-14 03:34] LABS: ABS Lymphocytes 0.1 10^3/ul (1.0-4.8); ABS Monocytes 0.3 10^3/ul (0-0.8); ABS Neutrophils 9.1 10^3/ul (1.5-7.7); Eosinophil % 0.2 %; Hematocrit 29 % (42-52); Hemoglobin 9.5 g/dL (14.0-18.0); Lymphocyte % 1.4 %; Mean Corpuscular HGB Conc 33 g/dL (31-36); Mean Corpuscular Hemoglobin 29 pg (27-31); Mean Corpuscular Volume 88 fL (80-94); Mean Platelet Volume 8.1 fL (7.4-10.4); Nucleated Red Blood Cells % 0.1; Platelet Count 153 10^3/uL (150-450); Red Blood Count 3.31 10^6 /uL (4.18-5.48); Red Cell Distribution Width 19 % (10-15); White Blood Count 9.6 10^3/uL (3.5-10.8)
[2021-02-14 03:45] LABS: Activated Partial Thrombo Time 32.4 seconds (26.0-38.0); INR 2.24 (0.82-1.09)
[2021-02-14 03:49] LABS: Urine Appearance Clear; Urine Bilirubin Negative (Negative); Urine Blood Negative (Negative); Urine Color Yellow; Urine Glucose Negative (Negative); Urine Ketones Negative (Negative); Urine Nitrite Negative (Negative); Urine Protein Negative (Negative); Urine Specific Gravity 1.008 (1.002-1.030); Urine Urobilinogen Negative (Negative)
[2021-02-14 03:51] LABS: ALT 20 U/L (7-52); Albumin 3.7 g/dL (3.2-5.2); Albumin/Globulin Ratio 0.9 (1-3); Alkaline Phosphatase 170 U/L (34-104); BUN/Creatinine Ratio 21.6 (8-20); Blood Urea Nitrogen 24 mg/dL (6-24); CO2 Carbon Dioxide 31 mmol/L (22-32); Calcium 8.9 mg/dL (8.6-10.3); Chloride 93 mmol/L (101-111); EGFR Non-African American 65.3 (>60); Globulin 4.2 g/dL (2-4); Glucose 124 mg/dL (70-100); Sodium 133 mmol/L (135-145); Total Protein 7.9 g/dL (6.4-8.9)
[2021-02-14 03:58] LABS: Troponin I 0.03 ng/mL (<0.03)
[2021-02-14 04:12] LABS: Anion Gap 9 mmol/L (2-11)
[2021-02-14 05:08] LABS: Influenza A Molecular Negative (Negative); Influenza B Molecular Negative (Negative)
[2021-02-14 05:08] LABS: Potassium Redraw 2.9 mmol/L (3.5-5.0)
[2021-02-14] MEDS ORDERED: Potassium Chlor 20 meq TAB.ER PO ONE ×2 (05:32→08:31)
[2021-02-14] MEDS ORDERED: Vancomycin 1,000 MG in NS 0.9% 250 ml 250 ML IVPB ONE (05:40)
[2021-02-14 05:52] LABS: Magnesium 1.1 mg/dL (1.9-2.7)
[2021-02-14] MEDS ORDERED: Magnesium Sulfate IV 3 GM in NS 0.9% 100 ml BAG 100 ML IVPB ONE (05:57)
[2021-02-14] MEDS ORDERED: Vancomycin per Pharmacy 1 EA NOTE FOLLOW UP SCH (06:00)
[2021-02-14] MEDS ORDERED: Cefepime 1 GM IV - ED ONCE IV ONE (06:00)
[2021-02-14] MEDS ORDERED: Dextrose 50% Syringe 50 ml 25 GM/50 ML SYRINGE IV PUSH PRN (06:59)
[2021-02-14] MEDS ORDERED: Albuterol 2.5mg/3 ml (0.083%) NEB.SOLN INH PRN (07:00)
[2021-02-14 07:17] LABS: Urine Appearance Clear; Urine Bilirubin Negative (Negative); Urine Blood 1+ (Negative); Urine Color Yellow; Urine Glucose Negative (Negative); Urine Ketones Negative (Negative); Urine Nitrite Negative (Negative); Urine Protein Negative (Negative); Urine Specific Gravity 1.009 (1.002-1.030); Urine Urobilinogen Negative (Negative)
[2021-02-14 07:20] LABS: Urine Bacteria Absent (Absent); Urine Red Blood Cell Trace(0-2/hpf) (Absent); Urine Squamous Epithelial Cell Present (Absent); Urine White Blood Cell Trace(0-5/hpf) (Absent)
[2021-02-14 07:36] LABS: Troponin I 0.07 ng/mL (<0.03)
[2021-02-14] MEDS ORDERED: Tiotropium Brom/Olodaterol MDI INH SCH (09:00)
[2021-02-14] MEDS ORDERED: NS 0.9% 100 ml BAG 100 ML ONE (09:23)
[2021-02-14] MEDS: KCL 20 MEQ/100 ML IVPREMIX 20 MEQ/100 ML BAG IV SCH ×4 (09:35→16:05)
[2021-02-14 10:47] LABS: BUN/Creatinine Ratio 22.8 (8-20); Calcium 8.7 mg/dL (8.6-10.3); EGFR African American 88.1 (>60); EGFR Non-African American 72.8 (>60); Potassium 3.2 mmol/L (3.5-5.0)
[2021-02-14] MEDS: Albuterol/Ipratropium NEB.SOL (2.5/0.5 MG) 3 ML NEB.SOLN INH SCH ×4 (12:33→22:35)
[2021-02-14] MEDS: Furosemide 40 mg/4 ml IV VIAL IV SCH (13:15)
[2021-02-14] MEDS ORDERED: Acetaminophen IV 1 GM/100ML 100 ML IVPB ONE (15:33)
[2021-02-14] MEDS: KCL 10 MEQ/50 ML IVPREMIX 10 MEQ/50 ML BAG IV SCH ×3 (15:50→19:38)
[2021-02-14 15:56] LABS: Magnesium 1.2 mg/dL (1.9-2.7)
[2021-02-14] MEDS ORDERED: Magnesium Sulf 4 GM/100 ML IV 4,000 MG/100 ML BAG IVPB ONE (16:00)
[2021-02-14] MEDS: Vancomycin 1,250 MG in NS 0.9% 250 ml 250 ML IVPB SCH (19:50)
[2021-02-14 19:55] LABS: Calcium 8.5 mg/dL (8.6-10.3); EGFR African American 85.2 (>60); EGFR Non-African American 70.4 (>60); Potassium 4.3 mmol/L (3.5-5.0)
[2021-02-14 20:22] LABS: HIV 4th Generation Nonreactive (Nonreactive)
[2021-02-14 20:56] LABS: Hepatitis B Surface Antigen Nonreactive (Nonreactive)
[2021-02-14 21:13] LABS: Hepatitis B Surface Ab Not Immune (Immune)
[2021-02-14 21:14] LABS: Hepatitis C Antibody Negative (Negative)
[2021-02-14] MEDS: Cefepime 1 GM in Dextrose 1 GM/50 ML BAG IV SCH (21:26)
[2021-02-15] MEDS: Albuterol/Ipratropium NEB.SOL (2.5/0.5 MG) 3 ML NEB.SOLN INH SCH ×2 (02:20→08:17)
[2021-02-15] MEDS: Cefepime 1 GM in Dextrose 1 GM/50 ML BAG IV SCH ×2 (05:15→17:47)
[2021-02-15] MEDS: Vancomycin 1,250 MG in NS 0.9% 250 ml 250 ML IVPB SCH ×2 (05:15→18:30)
[2021-02-15 07:40] LABS: ABS Lymphocytes 0.3 10^3/ul (1.0-4.8); ABS Monocytes 0.4 10^3/ul (0-0.8); ABS Neutrophils 2.9 10^3/ul (1.5-7.7); Anion Gap 5 mmol/L (2-11); BUN/Creatinine Ratio 26.6 (8-20); Blood Urea Nitrogen 25 mg/dL (6-24); CO2 Carbon Dioxide 32 mmol/L (22-32); Calcium 8.9 mg/dL (8.6-10.3); Chloride 98 mmol/L (101-111); EGFR African American 95.7 (>60); EGFR Non-African American 79.1 (>60); Eosinophil % 1.3 %; Glucose 111 mg/dL (70-100); Hematocrit 27 % (42-52); Hemoglobin 8.5 g/dL (14.0-18.0); INR 2.23 (0.82-1.09); Lymphocyte % 9.3 %; Magnesium 2.5 mg/dL (1.9-2.7); Mean Corpuscular HGB Conc 32 g/dL (31-36); Mean Corpuscular Hemoglobin 29 pg (27-31); Mean Corpuscular Volume 89 fL (80-94); Mean Platelet Volume 7.9 fL (7.4-10.4); Platelet Count 127 10^3/uL (150-450); Potassium 4.1 mmol/L (3.5-5.0); Red Cell Distribution Width 18 % (10-15); Sodium 135 mmol/L (135-145); White Blood Count 3.7 10^3/uL (3.5-10.8)
[2021-02-15 07:47] LABS: Troponin I 0.04 ng/mL (<0.03)
[2021-02-15] MEDS ORDERED: Albuterol/Ipratropium NEB.SOL (2.5/0.5 MG) 3 ML NEB.SOLN INH PRN (08:23)
[2021-02-15] MEDS: Furosemide 40 mg/4 ml IV VIAL IV SCH (09:23)
[2021-02-15] MEDS: Tiotropium Brom/Olodaterol MDI INH SCH (09:47)
[2021-02-15] MEDS: Amoxicillin/Clavul 875/125 TAB (Augmentin 875 tab) PO SCH (20:14)
[2021-02-16] MEDS ORDERED: Vancomycin Trough Check NOTE FOLLOW UP ONE (06:00)
[2021-02-16 06:54] LABS: ABS Eosinophils 0.3 10^3/ul (0-0.6); ABS Lymphocytes 0.6 10^3/ul (1.0-4.8); ABS Monocytes 0.5 10^3/ul (0-0.8); ABS Neutrophils 2.6 10^3/ul (1.5-7.7); Eosinophil % 6.5 %; Hematocrit 27 % (42-52); Hemoglobin 8.5 g/dL (14.0-18.0); Lymphocyte % 14.6 %; Mean Corpuscular HGB Conc 32 g/dL (31-36); Mean Corpuscular Hemoglobin 29 pg (27-31); Mean Corpuscular Volume 89 fL (80-94); Nucleated Red Blood Cells % 0.1; Platelet Count 131 10^3/uL (150-450); Red Blood Count 2.98 10^6 /uL (4.18-5.48); Red Cell Distribution Width 19 % (10-15)
[2021-02-16 07:07] LABS: Albumin 2.9 g/dL (3.2-5.2); Albumin/Globulin Ratio 0.9 (1-3); BUN/Creatinine Ratio 22.8 (8-20); EGFR African American 98.1 (>60); EGFR Non-African American 81.1 (>60); Globulin 3.2 g/dL (2-4); Potassium 3.6 mmol/L (3.5-5.0); Total Bilirubin 1.3 mg/dL (0.2-1.0); Total Protein 6.1 g/dL (6.4-8.9)
[2021-02-16 07:53] LABS: Vancomycin Trough 11.6 mcg/mL
[2021-02-16] MEDS: Tiotropium Brom/Olodaterol MDI INH SCH (07:53)
[2021-02-16] MEDS: Furosemide 40 mg/4 ml IV VIAL IV SCH (08:51)
[2021-02-16] MEDS: Amoxicillin/Clavul 875/125 TAB (Augmentin 875 tab) PO SCH (08:53)
[2021-02-16 11:46] VITALS: BP 121/65
== END 2021-02-16 16:00 | disposition home or self-care (01) | DRG 291 ==
LOC: ED 02:41 → ICU 05:34 → MEDTELE 19:12
PROVIDERS: ADMIT Internal Medicine; ATTEND Pediatrics

== ENCOUNTER 2024-08-28 10:07 | Inpatient (IN) ==
[2024-08-28] MEDS: diazePAM INJ CARPUJECT 5 MG/ML SYRINGE IV ONE (10:42)
[2024-08-28] MEDS ORDERED: Atropine 1% (ORAL/SL) 15 ML BTL SL PRN (13:02)
[2024-08-28] MEDS ORDERED: Ondansetron ODT 4 mg TAB 4 MG TAB SL PRN (13:02)
[2024-08-28] MEDS: Morphine ORAL CONCENTRATE 5 MG/0.25 ML ORAL.SYRIN PO PRN (14:44)
[2024-08-29] MEDS: Haloperidol 5 mg/ml SDV IV/IM 5 MG/ML AMP IV SLOW PU ONE (04:25)
[2024-08-29 10:18] VITALS: BP 138/84
[2024-08-30] MEDS: Morphine ORAL CONCENTRATE 5 MG/0.25 ML ORAL.SYRIN PO PRN (12:53)
== END 2024-09-01 16:10 | disposition hospice, inpatient (51) | DRG 862 ==
LOC: ED 10:07 → EDHOLD 10:07 → SUATTDRO 13:00 → MED 19:39
PROVIDERS: ADMIT Internal Medicine; ATTEND Student in an Organized Health Care Education/Training Program